=== PATIENT | female | born 2000 | race Caucasian/White ===

== ENCOUNTER 2024-09-16 09:54 | Outpatient (AMB) | payer OTHER, SELFPAY ==
[2024-09-16 10:03] VITALS: BP 128/80; PULSE 82; TEMP 36.9; O2SAT 99; BMI 22.3
--- NOTE | 2024-09-16 10:03 | MHC.PC.OV ---
Vital Signs 09/16/24 10:03 Height 5 ft 2 in Weight 122 lb BMI 22.3 BP 128/80 Blood Pressure Location Lt brachial Position Sitting Pulse 82 Pulse Source Pulse Oximeter Temp 98.4 F Temp Source Oral Pulse Oximetry (%) 99 Oxygen Delivery Method Room Air Intake Visit Reasons: establish care Portable Sawyer Required: No Accompanied by: Self / Same As Patient Allergies No Known Allergies Allergy (Verified 09/16/24 10:16) Medication List - Last Reconciled 09/16/[address] omeprazole 20 mg PO DAILY Tobacco use date assessed: 09/16/24 Dental Screening Dental Screen Date: 09/16/24 Did you have a dental visit in the last 12 months?: No Did you have a dental problem in the last 6 months where you did not have access to dental care?: No Was dental information given to patient?: Patient has dentist HPI establish care HPI Details Previous PCP: Bryan Singleton Last visit: about a year and half Last PE:in a while Specialist: OBGYN: Needs a obyn referral. 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 Past medical history:Elher's Dandros syndrome, fibroid adenoma right breast removed a year ago now, Leiden factor 5, GERD, Medications: Family HX:blood clotting disorders runs in the family, liden factor 5, paternal grand mother and aunt and first cousin had blood clots. mother high blood pressure Problem: The patient is a 24-year-old female presenting with concerns regarding Lona-Danlos Syndrome, gastroesophageal reflux disease, and recurring lower abdominal pain. She has a history of spontaneous left-sided pneumothoraxes, notably requiring a pleurodesis at [facility] in 2019. She reports joint hypermobility, easily sustained injuries with rapid recovery, and increased pain tolerance, consistent with Lona-Danlos Syndrome. She reports persistent gastroesophageal reflux symptoms, including heartburn, daily hiccups, and potential diaphragmatic spasms while on 20mg omeprazole. The patient inquires about increasing the dosage due to inadequate relief. Additionally, she has a familial history of De La Garza's esophagus. She also experiences bilateral lower abdominal pain, historically significant since childhood, suggesting a longstanding gastrointestinal component rather than gynecological. Heart palpitations are also noted, often feeling irregular but possibly exacerbated by dehydration and anxiety. Reports history of Leiden factor 5 disorder and is currently not on any treatment. She has Mirena IUD in place. Has sustained 3 collapsed lungs so far. Patient is concerned that she might has PCOS as well. [facility] Medical History (Updated 09/22/24 @ 05:[address] Campbell) Hypermobile Lona-Danlos syndrome Factor V Leiden Surgical History History of surgical removal of ganglion cyst History of lumpectomy of right breast History of wisdom tooth extraction History of chest tube placement Family History Mother Hypertension Father Hypertension Maternal Grandmother Substance use disorder Maternal Grandfather Substance use disorder Paternal Grandmother Factor V Leiden Paternal Aunt Factor V Leiden Social History Housing: Apartment Alcohol intake: current Alcohol intake frequency: holidays/special occasions only Alcohol type: beer Patient Tobacco Use Status: Never used Tobacco e-Cigarette/Vaping Use: Never Used Second Hand Smoke Exposure: No service: No Current occupational status: employed Current occupational exposures/hazards: No Cognitive needs: No Hearing needs: No Vision needs: No Questionnaire PHQ-9 Over the last 2 weeks, how often have you been bothered by any of the following problems? 1. Little interest or pleasure in doing things: not at all 2. Feeling down, depressed, or hopeless: not at all 3. Trouble falling or staying asleep, or sleeping too much: not at all 4. Feeling tired or having little energy: several days 5. Poor appetite or overeating: several days 6. Feeling bad about yourself - or that you are a failure or have let yourself or your family down: several days 7. Trouble concentrating on things, such as reading the newspaper or watching television: several days 8. Moving or speaking so slowly that other people could have noticed. Or the opposite - being so fidgety or restless that you have been moving around a lot more than usual: not at all 9. Thoughts that you would be better off or of hurting yourself in some way: not at all Total score: 4 Source: Developed by Drs. Michel Vale, Janeth Rose, Fredi Ignacio and colleagues, with an educational fahad from [employer]. Thrive Questionnaire Date Thrive assessed: 09/13/24 I am a: Patient What is your living situation today?: I have a steady place to live Within the past 12 months, did the food you bought not last and you didn't have the money to get more?: Never true Within the past 12 months, did you worry whether your food would run out before you got money to buy more?: Never true Do you have trouble paying for medicines?: No Do you have trouble getting transportation to medical appointments?: No Do you have trouble paying your heating and electricity bill?: No Do you have trouble taking care of your child, family member or friend?: No Do you have trouble with day-to-day activities such as bathing, preparing meals, shopping, managing finances, etc.?: No Are you currently unemployed and looking for a job?: No Are you interested in more education?: No Please select the resources that you would like help with: None Currently or been in a relationship where the following occur: No concerns reported THRIVE Score: 0 AUDIT C Alcohol Use Questionnaire (AUDIT-C) 1. How often do you have a drink containing alcohol?: Monthly or less 2. How many drinks containing alcohol do you have on a typical day when you are drinking?: 1 or 2 3. How often do you have six or more drinks on one occasion?: Never Total Score: 1 POLINA-7 AMB Questionnaire POLINA-7 Date POLINA - 7 assessed: 09/16/24 Feeling nervous, anxious, or on edge: 0 = Not at all Not being able to stop or control worryin = Not at all Worrying too much about different things: 0 = Not at all Trouble relaxin = Several days Being so restless that it is hard to sit still: 0 = Not at all Becoming easily annoyed or irritable: 1 = Several days Feeling afraid as if something awful might happen: 1 = Several days Total POLINA-7 score (0-4 normal; 5-9 mild; 10-14 moderate; 15-21 severe): 3 Source: Developed by David Wilkinset B.W. Milton, Fredi Ignacio and colleagues, with an educational afhad from [employer] POLINA-7 Assessment Billing POLINA-7 Assessment Tool: POLINA-7 Assessment 24020 Review of Systems Const Denies headache(s) Eyes Denies loss of vision ENT Denies vertigo, Denies dizziness, Denies headache(s) and Denies sore throat Card Denies chest pain, Denies leg edema, Denies lightheadedness and Reports other (intermittently feels palpitation with irregular sensation) Resp Denies cough, Denies hemoptysis and Denies wheezing GI Reports abdominal pain (Lower abdomen, reports having an Mirena IUD), Reports belching, Denies melena, Denies constipation, Reports dyspepsia, Reports heartburn, Denies diarrhea, Denies vomiting and Reports other (Daily hiccups) Denies urinary frequency, Denies dysuria and Denies urinary urgency Musc Denies arthralgias, Denies joint swelling, Denies numbness and Denies tingling Neuro Denies Abnormal speech present, Denies behavioral changes, Denies vertigo, Denies dizziness, Denies headache(s), Denies loss of vision, Denies memory loss, Denies numbness and Denies tingling Psych Denies anxiety, Denies behavioral changes, Denies depression, Denies memory loss and Denies panic attacks Carroll/Lymph Denies easy bleeding and Reports easy bruising (Lona-Danlos) Aller/Immun Denies wheezing Physical exam (Primary Care) Vital Signs: Last Vital Signs Temp 98.4 F 09/16/24 10:03 Pulse 82 09/16/24 10:03 BP 128/80 09/16/24 10:03 Pulse Ox 99 09/16/24 10:03 Oxygen Delivery Method Room Air 09/16/24 10:03 BMI result Body Mass Index 22.3 Tobacco/Smoking Status: Tobacco use Status Tobacco use date assessed 09/16/24 09/16/24 10:14 Patient Tobacco Use Status Never used Tobacco 09/16/24 10:14 e-Cigarette/Vaping Use Never Used 09/16/24 10:14 PHQ-9: PHQ-9 Score PHQ-9: Total score 4 09/16/24 10:21 Thrive Assessment: Date of Thrive Assessment Date Thrive assessed 09/13/24 09/16/24 10:14 Currently or been in a relationship where the following occur: No concerns reported Const General: healthy appearing, no acute distress, alert and awake Nutritional Appearance: well nourished Orientation/consciousness: oriented to person, oriented to place and oriented to time HENMT Ears: TM's normal bilaterally General nose exam: Normal nasal mucous membranes and turbinates present Eyes Conjunctivae: conjunctivae normal Sclerae: sclerae normal Pupils: Equal, round and reactive pupils present Neck Neck: Yes no lymphadenopathy and Yes no JVD Thyroid: Thyroid normal Carotids: no bruits Resp Effort & Inspection: normal respiratory effort and not tachypneic Auscultation: no crackles, no rales, no rhonchi and no wheezes Cardio Rate: regular rate Rhythm: regular rhythm Heart sounds: no murmurs and normal S1 and S2 GI Palpation (GI): Soft to palpation, Tenderness to palpation present (GI) (Bilateral lower abdomen pressure) suprapubicly, no hepatomegaly and no splenomegaly Auscultation: normal bowel sounds General: Yes no CVA tenderness Back/Spine/Pelvis Back: no CVA tenderness Skin General skin exam: no rashes or lesions noted and dry skin Neuro General: oriented to person, oriented to place and oriented to time Cranial nerves: Yes Equal, round and reactive pupils present Speech: No Abnormal speech present Gait exam (Neuro): Normal gait present Motor exam (neuro): no tremor noted Extrem Right upper extremity: full ROM Left upper extremity: full ROM Right lower extremity: full ROM; no edema Left lower extremity: full ROM; no edema Psych Mental Status: mental status grossly normal Speech and movement: Normal speech and movement present Affect: normal affect Attitude: cooperative Thought process: Normal thought process present Coding Level of Care Code New Pt Level 4 (51502) Diagnoses Hypermobile Lona-Danlos syndrome Q79.62 Factor V Leiden D68.51 Gastroesophageal reflux disease, unspecified whether esophagitis present K21.9 Esophagitis presence: esophagitis presence not specified Lower abdominal pain R10.30 Heart palpitations R00.2 Additional Codes POLINA-7 Assessment Billing - POLINA-7 Assessment Tool: POLINA-7 Assessment 59829 ([id number]) Time Spent (min) 41 Assessment & Plan Assessment & Plan (1) Hypermobile Lona-Danlos syndrome: Code(s): Q79.62 - Hypermobile Lona-Danlos syndrome Category: Medical Plan: Will refer to rheumatology to further evaluate (2) Factor V Leiden: Code(s): D68.51 - Activated protein C resistance Category: Medical Plan: Will refer to hematology (3) GERD (gastroesophageal reflux disease): Code(s): K21.9 - Gastro-esophageal reflux disease without esophagitis Category: Medical Qualifiers: Esophagitis presence: esophagitis presence not specified Qualified Code(s): K21.9 - Gastro-esophageal reflux disease without esophagitis Plan: Reinforced dietary restriction Currently on omeprazole 20 mg daily Take 2 of the 20 mg omeprazole Will order omeprazole 40 mg if symptoms improve (4) Lower abdominal pain: Code(s): R10.30 - Lower abdominal pain, unspecified Category: Medical Plan: Pressure in lower abdomen of assessment will send for an abdominal ultrasound and advise (5) Heart palpitations: Code(s): R00.2 - Palpitations Category: Medical Plan: Intermittent palpitations Reports that at times she feels irregular heartbeats She is not sure if his anxiety related We will order an altered monitor for a week to further evaluate Orders: Orders Complete Blood Count Auto Diff 09/16/24 D68.9 - Coagulation defect, unspecified, Z00.00 - Encounter for general adult medical examination without abnormal findings Comprehensive [place]. Panel Fast 09/16/24 D68.9 - Coagulation defect, unspecified, Z00.00 - Encounter for general adult medical examination without abnormal findings Prothrombin Time INR 09/16/24 D68.9 - Coagulation defect, unspecified ECG 7 day holter monitor Today R00.2 - Palpitations Lipid Panel 09/16/24 D68.9 - Coagulation defect, unspecified, Z00.00 - Encounter for general adult medical examination without abnormal findings TSH reflex Free T4 09/16/24 D68.9 - Coagulation defect, unspecified, Z00.00 - Encounter for general adult medical examination without abnormal findings UA CC w/rflx Micro + Cult 09/16/24 D68.9 - Coagulation defect, unspecified, Z00.00 - Encounter for general adult medical examination without abnormal findings Vitamin D 25-OH Total 09/16/24 D68.9 - Coagulation defect, unspecified, Z00.00 - Encounter for general adult medical examination without abnormal findings US abdomen limited 09/16/24 R10.9 - Unspecified abdominal pain Referrals Rheumatology Referral Q79.62 - Hypermobile Lona-Danlos syndrome Hematology & Oncology Referral D68.51 - Activated protein C resistance
== END 2024-09-16 10:59 | disposition home or self-care (01) ==
LOC: HO.HMCH 09:54
DX: Q79.62 Hypermobile Ehlers-Danlos syndrome (principal); D68.51 Activated protein C resistance; K21.9 Gastro-esophageal reflux disease without esophagitis; R10.30 Lower abdominal pain, unspecified; R00.2 Palpitations

== ENCOUNTER 2024-09-16 09:54 | Outpatient (REF) | payer OTHER, SELFPAY ==
[2024-09-16 11:18] LABS: MANUAL DIFF FLAG NO
[2024-09-16 12:01] LABS: Basophils Percent Auto 0.5 % (0-2); Eosinophils Absolute Auto 0.1 X10*3/uL (0.0-0.4); Eosinophils Percent Auto 0.9 % (0-4); Hematocrit 41.5 % (37.0-47.0); Hemoglobin 14.2 g/dl (12.0-16.0); Imm Gran Abs Auto 0.03 X10*3/uL (0.00-0.03); Imm Gran Pct Auto 0.4 % (0.0-0.4); Lymphocytes Absolute Auto 2.3 X10*3/uL (1.2-4.9); Lymphocytes Percent Auto 28.4 % (20-40); Mean Corpuscular HGB Conc 34.2 g/dl (31.0-35.0); Mean Corpuscular Hemoglobin 29.8 pg (27.0-33.0); Mean Platelet Volume 11.2 fL (9.4-12.3); Monocytes Absolute Auto 0.6 X10*3/uL (0.1-1.2); Neutrophils Percent Auto 61.8 % (45-73); Platelet Count 267 X10*3/uL (160-400); Red Blood Count 4.77 X10*6/uL (4.20-5.50); Red Cell Distribution Width 13.4 % (11.0-16.0); White Blood Count 8.1 X10*3/uL (4.8-10.8)
[2024-09-16 12:05] LABS: INTERNATIONAL NORM RATIO 1.1 (0.9-1.1); Prothrombin Time 12.7 SEC (10.9-12.4)
[2024-09-16 12:08] LABS: Appearance Urine Clear; Color Urine Yellow; Glucose Urine UA Negative (Negative); Leukocyte Esterase Urine Negative (Negative); Nitrite Urine Negative (Negative); PH 5.5 (5.0-9.0); Specific Gravity - Urine >= 1.030 (1.005-1.025); Urine Blood Negative (Negative); Urine Ketones 15 mg/dL (Negative); Urine Protein Trace mg/dL (Neg-Trace)
[2024-09-16 12:58] LABS: Alanine Aminotransferase 15 U/L (0-31); Alkaline Phosphatase 81 U/L (39-117); Anion Gap 14 (12-20); Aspartate Amino Transferase 21 U/L (5-31); Bilirubin Total 0.8 mg/dL (0.0-1.0); Blood Urea Nitrogen 12 mg/dL (9-16); Calcium 9.7 mg/dL (8.4-10.2); Carbon Dioxide 24 mmol/L (22-29); Chloride 106 mmol/L (96-108); Cholesterol 199 mg/dL (<200); Estimated Glomerular Filt Rate > 60; Glucose Fasting 92 mg/dL (60-99); HDL Cholesterol 63 mg/dL (>40); LDL Cholesterol Calculated 124 mg/dL (<100); Potassium 3.8 mmol/L (3.3-5.1); Sodium 140 mmol/L (135-145); Triglycerides 64 mg/dL (<150)
[2024-09-16 13:15] LABS: TSH reflex Free T4 1.92 uIU/mL (0.32-4.0); Vitamin D 25-OH Total 24.4 ng/mL (>30)
== END 2024-09-16 09:55 | disposition home or self-care (01) ==
LOC: HO.LAB 09:54
DX: Z00.00 Encounter for general adult medical examination without abnormal findings (principal); D68.9 Coagulation defect, unspecified
CPT/HCPCS: 36415; 80053; 80061; 81003; 82306; 84443; 85025; 85610; 96127

== ENCOUNTER 2024-09-30 14:25 | Outpatient (REF) | payer OTHER, SELFPAY ==
--- NOTE | ~2024-09-30 | US_ITS ---
EXAMINATION: US PELVIS CLINICAL INFORMATION: Lower quadrant pelvic pain. COMPARISON: None available. TECHNIQUE: Ultrasound of the pelvis is performed using both transabdominal and transvaginal transducers along with Doppler. Transvaginal imaging is performed due to inadequate visualization transabdominally. FINDINGS: Uterus: The uterus is anteversion flexion position and measures 7 x 3 x 3 cm. The double wall endometrial thickness is normal at identified due to the presence of an intrauterine contraceptive device that extends to the endocervical canal.. The uterus is smooth in contour and has normal myometrial echogenicity. No visible fibroid. Adnexa: Both ovaries are visualized. There is normal color flow to the adnexa. There is no ovarian torsion. There is no pelvic ascites or fluid collection. Right ovary measures 3 x 3 x 2 cm. Volume: 9 cc. Left ovary measures 3 x 2 x 2 cm. Volume: 7 cc. US/US pelvic and transvaginal IMPRESSION: No ovarian torsion. No gross uterine fibroid. Intrauterine contraceptive device extends into the endocervical canal. Electronically signed by: Jose Bernard MD 09/30/2024 03:29 PM EDT
== END 2024-09-30 14:26 | disposition home or self-care (01) ==
LOC: HO.US 14:25
DX: R10.9 Unspecified abdominal pain (principal)
CPT/HCPCS: 76830; 76856

== ENCOUNTER → 2024-09-30 14:30 | Outpatient (BNV) | payer OTHER, SELFPAY | PROVIDERS: Visit Provider Radiology Diagnostic Radiology | DX: R10.2 Pelvic and perineal pain (principal) | CPT/HCPCS: 76830; 76856 ==

== ENCOUNTER → 2024-10-10 07:38 | Outpatient (REF) | payer OTHER, SELFPAY ==
--- NOTE | 2024-10-10 07:44 | HM_ITS ---
* Total monitoring time 7 days. * Underlying rhythm is sinus with an average rate of 80/Min. * Rare supraventricular ectopy. * Rare ventricular ectopy. * No significant pauses or high-grade AV blocks. * Patient markers correlate with sinus rhythm and ventricular ectopy. * Palpitations/skipped beats in patient diary correlates with sinus rhythm and ventricular ectopy. Chest discomfort, left arm tingling/numbness correlates with sinus rhythm. Dizziness correlates with sinus tachycardia. MTDD
== END ==
LOC: HO.CARD 07:38
DX: R00.2 Palpitations (principal)
CPT/HCPCS: 93242

== ENCOUNTER → 2024-10-10 07:44 | Outpatient (BNV) | payer OTHER, SELFPAY | PROVIDERS: Visit Provider Internal Medicine | DX: I47.10 Supraventricular tachycardia, unspecified (principal); I49.3 Ventricular premature depolarization | CPT/HCPCS: 93244 ==

== ENCOUNTER → 2024-11-04 15:19 | Outpatient (BNV) | payer OTHER, SELFPAY | PROVIDERS: Visit Provider Internal Medicine | DX: D68.52 Prothrombin gene mutation (principal) | CPT/HCPCS: 99204 ==

== ENCOUNTER 2024-11-08 16:29 | Outpatient (AMB) | payer OTHER, SELFPAY ==
[2024-11-08 16:33] VITALS: BP 122/80; PULSE 76; TEMP 36.3; O2SAT 99; BMI 22.4
--- NOTE | 2024-11-08 16:33 | A.OFFPC_ITS ---
Vital Signs 11/08/24 16:33 Height 5 ft 2 in Weight 122 lb 4 oz BMI 22.4 BP 122/80 Blood Pressure Location Lt brachial Position Sitting Pulse 76 Pulse Source Pulse Oximeter Temp 97.3 F Temp Source Temporal Artery Scan Pulse Oximetry (%) 99 Oxygen Delivery Method Room Air Intake Visit Reasons: Annual Exam Bilingual Receptionist Required: No Accompanied by: Self / Same As Patient Allergies No Known Allergies Allergy (Verified 11/10/24 13:13) Medication List - Last Reconciled 11/10/[address] omeprazole 20 mg PO DAILY Tobacco use date assessed: 11/08/24 Dental Screening Dental Screen Date: 11/08/24 Did you have a dental visit in the last 12 months?: Yes Did you have a dental problem in the last 6 months where you did not have access to dental care?: No Was dental information given to patient?: Patient has dentist HPI Annual Exam HPI Details Dentist: up to date Eye: Reports having this done months ago and every was fine, she has a slight Snellen: Right: Left: Corrected vision: no soes not need a prescrition STI screening: EGD: she needs an endoscopy- she is having pelvic pain, ultrasound was fine. Pap Smer: october 28, 2024 PHQ-9: Flu: up to date COVID: x4 Tdap: due will be give today Diet: regular diet, discussed cholesterol, reports that she eats a lot eggs Exercise: She is physically active, at least 3 times a week The patient is a 24-year-old female presenting with pelvic pain and a request for a GI referral for potential endoscopy. The pelvic pain is suspected to be gastrointestinal in origin, as previous ultrasound results were normal. The patient reports that the pain is not constant but occurs intermittently. The patient has a history of vitamin D deficiency, which is common in the [facility] [place] due to limited sun exposure. She has been advised to take vitamin D supplements. The patient has hypercholesterolemia, with cholesterol levels slightly elevated. She has been advised to modify her diet, particularly reducing intake of fried foods, red meats, and shellfish. The patient reports ectopy, which was noted in cardiac evaluations. She was reassured that this is a common finding and not a cause for concern. The patient has a slight astigmatism in her left eye, but no corrective lenses are required. The patient reports jaw pain following recent dental work, specifically a crown placement. She plans to contact her dentist for further evaluation. The patient experiences chronic neck and back pain, which she attributes to poor posture. She is attempting to improve her posture to alleviate symptoms. The patient reports frequent headaches, which she believes are tension-related due to neck stiffness. She has increased her fluid intake and uses Excedrin Migraine for relief. The patient has a cyst in her finger, with a history of previous surgical intervention. She reports inflammation and swelling in the affected finger, prior. The patient has plantar fasciitis and has been advised to apply Biofreeze cream for relief. She also reports a potential bunion formation on her foot. [facility] Medical History (Updated 11/10/24 @ 14:[address] Campbell) Neck pain Chronic tension headache Hypermobile Lona-Danlos syndrome Factor V Leiden Surgical History History of surgical removal of ganglion cyst History of lumpectomy of right breast History of wisdom tooth extraction History of chest tube placement Family History Mother Hypertension Father Hypertension Maternal Grandmother Substance use disorder Maternal Grandfather Substance use disorder Paternal Grandmother Factor V Leiden Paternal Aunt Factor V Leiden DVT (deep venous thrombosis) Family/Other Factor V Leiden Paternal Aunt No problems noted. Social History Household Members: Significant Other Housing: Apartment Alcohol intake: current Alcohol intake frequency: holidays/special occasions only Alcohol type: beer Patient Tobacco Use Status: Never used Tobacco e-Cigarette/Vaping Use: Never Used Second Hand Smoke Exposure: No Substance Use Type: Marijuana service: No Current occupational status: employed Current occupational exposures/hazards: No Cognitive needs: No Hearing needs: No Vision needs: No Questionnaire PHQ-9 Over the last 2 weeks, how often have you been bothered by any of the following problems? 1. Little interest or pleasure in doing things: not at all 2. Feeling down, depressed, or hopeless: not at all 3. Trouble falling or staying asleep, or sleeping too much: not at all 4. Feeling tired or having little energy: several days 5. Poor appetite or overeating: several days 6. Feeling bad about yourself - or that you are a failure or have let yourself or your family down: several days 7. Trouble concentrating on things, such as reading the newspaper or watching television: several days 8. Moving or speaking so slowly that other people could have noticed. Or the opposite - being so fidgety or restless that you have been moving around a lot more than usual: not at all 9. Thoughts that you would be better off or of hurting yourself in some way: not at all Total score: 4 Depression Screening Interpretation: Negative Depression Screening Done: Yes Source: Developed by Drs. Michel Vale, Janeth Rose, Fredi Ignacio and colleagues, with an educational fahad from [employer]. Thrive Questionnaire Date Thrive assessed: 11/08/24 I am a: Patient What is your living situation today?: I have a steady place to live Within the past 12 months, did the food you bought not last and you didn't have the money to get more?: Never true Within the past 12 months, did you worry whether your food would run out before you got money to buy more?: Never true Do you have trouble paying for medicines?: No Do you have trouble getting transportation to medical appointments?: No Do you have trouble paying your heating and electricity bill?: No Do you have trouble taking care of your child, family member or friend?: No Do you have trouble with day-to-day activities such as bathing, preparing meals, shopping, managing finances, etc.?: No Are you currently unemployed and looking for a job?: No Are you interested in more education?: No Please select the resources that you would like help with: None Currently or been in a relationship where the following occur: No concerns reported THRIVE Score: 0 AUDIT C Alcohol Use Questionnaire (AUDIT-C) 1. How often do you have a drink containing alcohol?: Monthly or less 2. How many drinks containing alcohol do you have on a typical day when you are drinking?: 1 or 2 3. How often do you have six or more drinks on one occasion?: Never Total Score: 1 POLINA-7 AMB Questionnaire POLINA-7 Date POLINA - 7 assessed: 11/08/24 Feeling nervous, anxious, or on edge: 0 = Not at all Not being able to stop or control worryin = Not at all Worrying too much about different things: 0 = Not at all Trouble relaxin = Several days Being so restless that it is hard to sit still: 0 = Not at all Becoming easily annoyed or irritable: 1 = Several days Feeling afraid as if something awful might happen: 1 = Several days Total POLINA-7 score (0-4 normal; 5-9 mild; 10-14 moderate; 15-21 severe): 3 Source: Developed by Drs. Michel Vale, Janeth Rose, Fredi Ignacio and colleagues, with an educational fahad from [employer]. Review of Systems Const Reports headache(s) (On and off attributed to neck tension) Eyes Denies loss of vision ENT Denies vertigo, Denies dizziness, Reports headache(s) (On and off attributed to neck tension), Reports neck pain and Reports sore throat (Occasional) Card Denies chest pain, Denies leg edema, Denies lightheadedness and Reports other ( palpitation) Resp Denies cough, Denies hemoptysis, Denies wheezing and Reports other (Recurrent PE) GI Reports abdominal pain (Across lower abdomen/feels like it is in her pelvis), Denies melena, Denies constipation, Reports heartburn, Denies diarrhea, Denies vomiting and Reports other (Hiccups) Denies urinary frequency, Denies dysuria and Denies urinary urgency Musc Denies arthralgias, Denies joint swelling, Reports neck pain, Denies numbness and Denies tingling Neuro Denies Abnormal speech present, Denies behavioral changes, Denies vertigo, Denies dizziness, Reports headache(s) (On and off attributed to neck tension), Denies loss of vision, Denies memory loss, Denies numbness and Denies tingling Psych Denies anxiety, Denies behavioral changes, Denies depression, Denies memory loss and Denies panic attacks Carroll/Lymph Denies easy bleeding and Denies easy bruising Aller/Immun Denies wheezing Physical exam (Primary Care) Vital Signs: Last Vital Signs Temp 97.3 F 11/08/24 16:33 Pulse 76 11/08/24 16:33 BP 122/80 11/08/24 16:33 Pulse Ox 99 11/08/24 16:33 Oxygen Delivery Method Room Air 11/08/24 16:33 BMI result Body Mass Index 22.4 Tobacco/Smoking Status: Tobacco use Status Tobacco use date assessed 11/08/24 11/08/24 16:40 Patient Tobacco Use Status Never used Tobacco 11/08/24 16:40 e-Cigarette/Vaping Use Never Used 11/08/24 16:40 PHQ-9: PHQ-9 Score PHQ-9: Total score 4 11/10/24 13:23 Depression Screening Interpretation: Negative Thrive Assessment: Date of Thrive Assessment Date Thrive assessed 11/08/24 11/08/24 16:40 Currently or been in a relationship where the following occur: No concerns reported Const General: healthy appearing, no acute distress, alert and awake Nutritional Appearance: well nourished Orientation/consciousness: oriented to person, oriented to place and oriented to time HENMT Ears: TM's normal bilaterally General nose exam: Normal nasal mucous membranes and turbinates present Eyes Conjunctivae: conjunctivae normal Sclerae: sclerae normal Pupils: Equal, round and reactive pupils present Neck Neck: Yes no lymphadenopathy and Yes no JVD Thyroid: Thyroid normal Carotids: no bruits Resp Effort & Inspection: normal respiratory effort and not tachypneic Auscultation: no crackles, no rales, no rhonchi and no wheezes Cardio Rate: regular rate Rhythm: regular rhythm Heart sounds: no murmurs and normal S1 and S2 GI Palpation (GI): Soft to palpation, nontender, no hepatomegaly and no splenomegaly Auscultation: normal bowel sounds General: Yes no CVA tenderness Back/Spine/Pelvis Back: no CVA tenderness Skin General skin exam: no rashes or lesions noted and dry skin Neuro General: oriented to person, oriented to place and oriented to time Cranial nerves: Yes Equal, round and reactive pupils present Speech: No Abnormal speech present Gait exam (Neuro): Normal gait present Motor exam (neuro): no tremor noted Deep tendon reflexes (DTR's): Right triceps reflex intensity grade: 2+, Left triceps reflex intensity grade: 2+, Rt Biceps (C5, C6): 2+, Left biceps reflex intensity grade: 2+, Right brachioradialis reflex intensity grade: 2+, Left brachioradialis reflex intensity grade: 2+, Right patellar reflex intensity grade: 2+ and Left patellar reflex intensity grade: 2+ Extrem Right upper extremity: full ROM Left upper extremity: full ROM Right lower extremity: full ROM; no edema Left lower extremity: full ROM; no edema Psych Mental Status: mental status grossly normal Speech and movement: Normal speech and movement present Affect: normal affect Attitude: cooperative Thought process: Normal thought process present Results Reviewed Results Reviewed: Laboratory Tests 09/16/24 09/16/24 11:15 11:16 WBC 8.1 RBC 4.77 Hgb 14.2 Hct 41.5 MCV 87.0 MCH 29.8 MCHC 34.2 RDW 13.4 Plt Count 267 MPV 11.2 PT 12.7 H INR 1.1 Sodium 140 Potassium 3.8 Chloride 106 Carbon Dioxide 24 Anion Gap 14 BUN 12 Creatinine 0.79 Estimated GFR > 60 Fasting Glucose 92 Calcium 9.7 Total Bilirubin 0.8 AST 21 ALT 15 Alkaline Phosphatase 81 Total Protein 8.0 Albumin 5.0 Triglycerides 64 Cholesterol 199 LDL Cholesterol, Calc 124 H HDL Cholesterol 63 25-OH Vitamin D Total 24.4 L TSH 1.92 Urine Color Yellow Urine Appearance Clear Urine pH 5.5 Ur Specific Roosevelt >= 1.030 H Urine Protein Trace Urine Glucose (UA) Negative Urine Ketones 15 Urine Blood Negative Urine Nitrite Negative Ur Leukocyte Esterase Negative Coding Level of Care Code Est Pt Prev Care [id number]([id number]) Diagnoses Annual physical exam Z00.00 Hypermobile Lona-Danlos syndrome Q79.62 Lower abdominal pain R10.30 Gastroesophageal reflux disease, unspecified whether esophagitis present K21.9 Esophagitis presence: esophagitis presence not specified Factor V Leiden D68.51 Heart palpitations R00.2 Plantar fasciitis M72.2 Jaw pain R68.84 Vitamin D deficiency E55.9 Hyperlipidemia, unspecified hyperlipidemia type E78.5 Hyperlipidemia type: unspecified Encounter for screening for malignant neoplasm of skin Z12.83 Ganglion, left hand M67.442 Chronic tension-type headache, not intractable G44.229 Intractability: not intractable Neck pain M54.2 Time Spent (min) 43 Assessment & Plan Assessment & Plan (1) Annual physical exam: Code(s): Z00.00 - Encounter for general adult medical examination without abnormal findings Category: Medical Plan: Preventative guidelines and recent labs reviewed with the patient.Pap Smer: october 28, 2024 (2) Hypermobile Lona-Danlos syndrome: Code(s): 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 Patient reports concerns of having this diagnosis and has been trying get it evaluated. Initially, a referral was placed to rheumatology and was told that rheumatology does not diagnose this condition. Another referral was placed to [facility] genetics, awaiting response. (3) Lower abdominal pain: Code(s): R10.30 - Lower abdominal pain, unspecified Category: Medical Plan: She also experiences bilateral lower abdominal pain, historically significant since childhood, suggesting a longstanding gastrointestinal component rather than gynecologica Patient had a pelvic ultrasound on 09/30/2024 that showed no abnormal findings. Initially, an abdominal ultrasound was ordered along with a pelvic ultrasound. However, the radiology personnel thought that given her symptoms the pelvic ultrasound was more appropriate. We will refer the patient to GI (4) GERD (gastroesophageal reflux disease): Code(s): K21.9 - Gastro-esophageal reflux disease without esophagitis Category: Medical Qualifiers: Esophagitis presence: esophagitis presence not specified Qualified Code(s): K21.9 - Gastro-esophageal reflux disease without esophagitis Plan: She reports persistent gastroesophageal reflux symptoms, including heartburn, daily hiccups, and potential diaphragmatic spasms while on 20mg omeprazole. The patient inquires about increasing the dosage due to inadequate relief. Additionally, she has a familial history of De La Garza's esophagus. Continue omeprazole 20 mg daily. Reinforced dietary restrictions. We will refer the patient to GI for possibly EGD (5) Factor V Leiden: Code(s): D68.51 - Activated protein C resistance Category: Medical Plan: Patient reports recurrent spontaneous pneumothorax in the left lung started at age 16. She had a lung surgery pleurodesis at [facility] in [place]. She has a Mirena IUD in place. Patient was seen by Hematology on 11/04/2024 and was advised to abstain from smoking and avoid using oral contraceptive. (6) Heart palpitations: Code(s): R00.2 - Palpitations Category: Medical Plan: Patient was evaluated via a 7 day Holter monitor. This showed palpitation/skipped beats in the patient diary correlating with sinus rhythm and ventricular ectopy. Dizziness correlating with sinus tachycardia and chest discomfort and left arm tightness/numbness recurrence correlating with sinus rhythm (7) Plantar fasciitis: Code(s): M72.2 - Plantar fascial fibromatosis Category: Medical Plan: Encouraged comfortable shoes and calf massages. You may apply Biofreeze to calves (8) Jaw pain: Code(s): R68.84 - Jaw pain Category: Medical Plan: Recent root canal. Reports discomfort to right jaw. No signs of infection and mouth. The patient we will be following up with her dentist. (9) Vitamin D deficiency: Code(s): E55.9 - Vitamin D deficiency, unspecified Category: Medical Plan: Vitamin-D level is 24.4. Recommended vitamin D3 1000 IU OTC daily (10) HLD (hyperlipidemia): Code(s): E78.5 - Hyperlipidemia, unspecified Category: Medical Qualifiers: Hyperlipidemia type: unspecified Qualified Code(s): E78.5 - Hyperlip idemia, unspecified Plan: Triglycerides 64, total cholesterol 199, LDL 124, HDL 63 Discussed lifestyle modifications including dietary changes and physical activity (11) Encounter for screening for malignant neoplasm of skin: Code(s): Z12.83 - Encounter for screening for malignant neoplasm of skin Category: Medical Plan: Dermatology referral placed (12) Ganglion, left hand: Code(s): M67.442 - Ganglion, left hand Category: Medical Plan: Patient reports recurrent cysts between her fingers that required surgical intervention in the past. Reports that this area gets inflamed and swollen. Reports that she could feel a small raised area coming back, which she has been monitoring. We will continue to monitor (13) Chronic tension headache: Code(s): G44.229 - Chronic tension-type headache, not intractable Category: Medical Qualifiers: Intractability: not intractable Qualified Code(s): G44.229 - Chronic tension-type headache, not intractable Plan: History of tension headache attributed to at posture and neck pain that she has been working on better in her posture. Increase fluid hydration and continue Excedrin migraine OTC has needed (14) Neck pain: Code(s): M54.2 - Cervicalgia Category: Medical Plan: Continue working on posture. You may benefit from occasional massages. Can alternate warm and cold compress as needed with 20 minutes on each interval Orders: Orders Complete Blood Count Auto Diff 1 Year D68.51 - Activated protein C resistance, D68.9 - Coagulation defect, unspecified, K21.9 - Gastro-esophageal reflux disease without esophagitis, R00.2 - Palpitations, R10.30 - Lower abdominal pain, unspecified, R10.9 - Unspecified abdominal pain, Z00.00 - Encounter for general adult medical examination without abnormal findings Comprehensive [place]kelman. Panel Fast 1 Year D68.51 - Activated protein C resistance, D68.9 - Coagulation defect, unspecified, K21.9 - Gastro-esophageal reflux disease without esophagitis, R00.2 - Palpitations, R10.30 - Lower abdominal pain, unspecified, R10.9 - Unspecified abdominal pain, Z00.00 - Encounter for general adult medical examination without abnormal findings Lipid Panel 1 Year D68.51 - Activated protein C resistance, D68.9 - Coagulation defect, unspecified, K21.9 - Gastro-esophageal reflux disease without esophagitis, R00.2 - Palpitations, R10.30 - Lower abdominal pain, unspecified, R10.9 - Unspecified abdominal pain, Z00.00 - Encounter for general adult medical examination without abnormal findings UA CC w/rflx Micro + Cult 1 Year D68.51 - Activated protein C resistance, D68.9 - Coagulation defect, unspecified, K21.9 - Gastro-esophageal reflux disease without esophagitis, R00.2 - Palpitations, R10.30 - Lower abdominal pain, unspecified, R10.9 - Unspecified abdominal pain, Z00.00 - Encounter for general adult medical examination without abnormal findings TSH reflex Free T4 1 Year D68.51 - Activated protein C resistance, D68.9 - Coagulation defect, unspecified, K21.9 - Gastro-esophageal reflux disease without esophagitis, R00.2 - Palpitations, R10.30 - Lower abdominal pain, unspecified, R10.9 - Unspecified abdominal pain, Z00.00 - Encounter for general adult medical examination without abnormal findings Vitamin D 25-OH Total 1 Year D68.51 - Activated protein C resistance, D68.9 - Coagulation defect, unspecified, K21.9 - Gastro-esophageal reflux disease without esophagitis, R00.2 - Palpitations, R10.30 - Lower abdominal pain, unspecified, R10.9 - Unspecified abdominal pain, Z00.00 - Encounter for general adult medical examination without abnormal findings Referrals Gastroenterology Referral K21.9 - Gastro-esophageal reflux disease without esophagitis, R10.30 - Lower abdominal pain, unspecified Dermatology Referral Z12.83 - Encounter for screening for malignant neoplasm of skin
== END 2024-11-08 17:20 | disposition home or self-care (01) ==
LOC: HO.HMCH 16:29
DX: Z00.00 Encounter for general adult medical examination without abnormal findings (principal); Q79.62 Hypermobile Ehlers-Danlos syndrome; R10.30 Lower abdominal pain, unspecified; K21.9 Gastro-esophageal reflux disease without esophagitis; D68.51 Activated protein C resistance; R00.2 Palpitations; M72.2 Plantar fascial fibromatosis; R68.84 Jaw pain; E55.9 Vitamin D deficiency, unspecified; E78.5 Hyperlipidemia, unspecified; Z12.83 Encounter for screening for malignant neoplasm of skin; M67.442 Ganglion, left hand; G44.229 Chronic tension-type headache, not intractable; M54.2 Cervicalgia

== ENCOUNTER 2024-12-20 14:31 | Outpatient (REF) | payer OTHER, SELFPAY ==
--- NOTE | ~2024-12-20 | US_ITS ---
EXAMINATION: US THYROID HISTORY: E04.9 - Nontoxic goiter, unspecified TECHNIQUE: Real-time grayscale ultrasound imaging was performed and images were reviewed. COMPARISON: There are no prior studies available for comparison. FINDINGS: SIZE: The right thyroid lobe measures 5.1 x 1.1 x 1.3 cm. The left thyroid lobe measures 3.6 x 0.9 x 1.3 cm. The isthmus measures 2 mm. FLOW: Flow to the gland is normal. ECHOGENICITY: The echotexture of the gland is homogeneous. NODULES: No definite thyroid nodules are identified. However, on the right, there is a 9 x 6 x 3 mm hypoechoic nodule posterior to the midportion of the gland. On the left, there is a 4.3 x 3 mm hypoechoic nodule posterior to the lower pole. US/US thyroid IMPRESSION: No definite thyroid nodules are identified. There are hypoechoic nodules posterior to both thyroid lobes which could represent parathyroid adenomas or possibly lymph nodes. Laboratory correlation to assess for parathyroid disease is recommended. If further imaging is desired, a nuclear medicine parathyroid scan is suggested. ACR TI-RADS Guidelines TR1 (0 points): Benign. No follow-up or biopsy required TR2 (2 points): Not Suspicious. No biopsy or follow up indicated TR3 (3 points): Mildly Suspicious. FNA if >= 2.5 cm, Follow if >= 1.5 cm TR4 (4-6 points): Moderately Suspicious. FNA if >= 1.5 cm, Follow if >= 1.0 cm TR5 (>=7 points): Highly Suspicious. FNA if >= 1.0 cm, Follow if >= 0.5 cm Electronically signed by: Michel Crandall MD 12/20/2024 02:59 PM EDT
--- OUTSIDE RECORDS SUMMARY | 2024-12-20 14:50 | XMS_ITS | Clinical Summary ---
Author Organization [facility] [address] [facility] [address] Care Team Providers Care Straightening Machine Operator Name Role Phone Bryan Tyler Primary Care Provider [phone] Allergies Active Allergy Reactions Criticality Noted Date Comments Adhesive Rash 12/25/2017 Pretty much all adhesives cause some irritation and itchy redness, but if it's only on for a little while it's fine. Medications intrauterine device (PARAGARD) 380 square mm IUD by Intrauterine route Continuous (Device). Expected removal date 2025 Active acetaminophen (TYLENOL) 325 mg Tablet Take 3 tablets by mouth every 6 hours as needed for Pain (for mild to moderate pain). 0 8 Active eletriptan (RELPAX) 20 mg Tablet 1 Active hydrOXYzine (Atarax) 25 mg tablet Take 25 mg by mouth every 6 hours as needed for Anxiety. 3 Active levonorgestreL (Liletta) 20.4 mcg/24 hrs (8 yrs) 52 mg IUD 1 each by Intrauterine route Continuous (Device). Expected removal date Per pt report Active omeprazole (PriLOSEC OTC) [address] tablet Take 20 mg by mouth as needed. Active oxyCODONE (Roxicodone) 5 mg tablet Take 1 tablet by mouth every 4 hours as needed for Pain. 4 tablet 3 Active Additional Information Patient not taking.Reported on 04/14/2023 Active Problems Problem Noted Date Diagnosed Date LUX (dyspnea on exertion) 11/06/2020 Overview (11/06/2020): Episodic severe dyspnea Had to sit down walking through the store Negative CTA at [facility] In [facility] ED had transient saturation of 82% with good Pleth according to her Assessment & Plan (11/06/2020 10:34 AM EDT): Episodic severe dyspnea Had to sit down walking through the store Negative CTA at [facility] In [facility] ED had transient saturation of 82% with good Pleth according to her Given her sports history she does not have serious underlying congenital cardiopulmonary disease. But she has developed new tacky arrhythmias and potentially a transient low saturation. This would raise concern for shunting, likely intracardiac. She documented a heart rate of 142 at rest so I am concerned about SVT. No delta wave seen on ECG. Work-up as outlined. Palpitations 11/06/2020 Overview (01/15/2021): She documented heart rate to 142 while at rest Event monitor neg 9 Assessment & Plan (11/06/2020 10:34 AM EDT): She documented heart rate to 142 while at rest Event monitor ordered Recurrent spontaneous pneumothorax 12/29/2017 Overview (11/06/2020): 3 episodes beginning at age 17 Status post pleurodesis on the left [facility] Had a recurrent pneumothorax on the left following this that was controlled by pleurodesis No cysts on chest CT concerning for CARTAGENA Assessment & Plan (11/06/2020 10:33 AM EDT): 3 episodes beginning at age 17 Status post pleurodesis on the left [facility] Had a recurrent pneumothorax on the left following this that was controlled by pleurodesis No cysts on chest CT concerning for CARTAGENA Resolved Problems Problem Noted Date Diagnosed Date Resolved Date Pneumothorax on left 05/10/2019 021 Family History Medical History Relation Comments Bleeding Disorder Cousin Factor V Leide n Deep Vein Thrombosis Cousin Postoperative Nausea and Vomiting Mother Bleeding Disorder Paternal Aunt Factor V Leide n Bleeding Disorder Paternal Grandmother Factor V Leiden Anesthesia Reaction Neg Hx Malignant Hyperthermia Neg Hx Pseudocholinesterase Deficiency Neg Hx Pulmonary Embolism Neg Hx Relation Status Comments Cousin Mother Paternal Aunt Paternal Grandmother Social History Tobacco Use Types Packs/Day Years Used Date Smoking Tobacco: Never Smokeless Tobacco: Never Tobacco Cessation:Counseling Given: Not Answered Alcohol Use Standard Drinks/Week Comments Not Currently 0 (1 standard drink = 0.6 oz pur e alcohol) 1x a month, if that Comments No Sex and Gender Information Value Date Recorded Sex Assigned at Not on file Legal Sex Female 6:53 AM EST Gender Identity Not on file Sexual Orientation Not on file Last Filed Vital Signs Vital Sign Reading Time Taken Comments Blood Pressure 102/70 04/14/2023 2:27 PM EST Pulse 76 04/14/2023 2:27 PM EST Temperature 36.9 C (98.5 F) 04/14/2023 2:27 PM EST Respiratory Rate 20 04/03/2023 3:00 PM EST Oxygen Saturation 99% 04/14/2023 2:27 PM EST Inhaled Oxygen Concentration - - Weight 53.3 kg (117 lb 8 oz) 04/03/2023 12:21 PM EST Height 157.5 cm (5' 2 ) 04/03/2023 12:21 PM EST Body Mass Index 21.49 04/03/2023 12:21 PM EST Plan of Treatment Health Maintenance Due Date Last Done Comments HPV vaccine (1 - 3-dose series) 2013 HIV screen 01/21/2016 Hepatitis C Screening 01/21/2016 Hepatitis B vaccine (0-59 yrs) and Risk (1) 2017 Tetanus/Diphtheria/Pertussis Vaccines (1 - Tdap) 01/20 PAP Smear 01/30/2022 01/30/2019 Covid-19 Vaccine (1 - 2023- season) 2023 Influenza (Flu) vaccine (1 o f 1 - Influenza standard series) 12/16/2024 Procedures Procedure Name Priority Date/Time Associated Diagnosis Comments RAIL BONDER CYTOLOGY FINAL REPORT Routine 01/30/2019 12:30 PM EDT from Last 3 Months or Most Recently Relevant to Health Maintenance Results * Second Vp Hr Assessment Cytology Final Report (01/30/2019 12:30 PM EDT) Second Vp Hr Assessment Cytology Final Report [id number] Location: [facility] The signing pathologist has (i) examined the relevant preparation(s) for the specimen(s) and (ii) rendered or confirmed the diagnosis(es). . Second Vp Hr Assessment Final DIAGNOSIS Normal Negative for intraepithelial lesion or malignancy (NILM). For consensus guidelines for the management of cervical cancer screening test results, please see: http://www.asccp. org . Electronically signed by: Delia LUNA(ASCP)Wendy Verified: 02/07/2019 Activity Aid Performed at: -[facility] Dept. of Pathology, [place], [place] HPV RESULTS Not applicable (HPV testing either not indicated or not requested by clinician). STATEMENT OF ADEQUACY Specimen submitted is satisfactory. Endocervical component present. CLINICAL INFORMATION HPV Option: Reflex HPV CT/NG Option: (not provided) Preparation: Liquid Based Pap Specimen Source: Cervical/LBP LMP: (not provided) Hysterectomy?: No ?: No ?: No I.U.D.?: Yes Pelvic Radiation: No Hist Abnl Pap/Biopsy?: No Prior RAIL BONDER Therapy?: No Hist of HPV Vaccine?: Yes Clinical Data, Significant Therapy and Clinical Impression : _ Referring Identifier: [id number] This Pap Test has been evaluated with the assistance of the [employer] Pap Test Imaging System. Note: The Pap test is a screening test for cervical cancer with an inherent false-negative rate dependent upon several variables. For further information please contact the [facility] Laboratory. Reference: Brie SALAZAR. Condenser Cleaner of Pap Smear Results. In: Meghan BS, Elieser GIRARD, ed. The Pap Smear. [place]: Tab, 2002: 71-77. Comment Section Specimen collected at [facility] 01/30/2019 12:3 0 PM EDT us Tram Whitaker MD PATHOLOGY/CYTOLOGY ORDERABLES Fi nal Result [facility] [place] [address] from Last 3 Months or Most Recently Relevant to Health Maintenance Insurance [employer] Advance Directives * Full Code (Latest Code Status on File) Date Activated Date Inactivated Comments 05/10/2019 9:57 PM 05/11/2019 7:30 PM Question Answer Comments Does patient have capacity to make decision: Yes * Full Code Date Activated Date Inactivated Comments 12/29/2017 7:54 AM 12/31/2017 10:34 PM Question Answer Comments Does patient have capacity to make decision: Yes Care Teams Straightening Machine Operator Relationship Specialty Start Date End Date Bryan Tyler PA [address] [place] [address] PCP - General Family Medicine 09/09/22
--- OUTSIDE RECORDS SUMMARY | 2024-12-20 14:50 | XMS_ITS | Encounter Summary ---
Author Organization [facility] Address [address] [place] [address] Care Team Providers Care Elementary Assistant Principal Name Role Phone Unavailable Primary Care Provider Unavailabl e Encounter Details Date Type Department Care Team (Late st Contact Info) Description 11/23/2019 Lab Requisition [facility] Pathology & Laboratory Medicine - [facility] [address] [place] [address] Outr Resulting Lab, Provider Social History Tobacco Use Types Packs/Day Years Used Date Smoking Tobacco: Never Assessed Comments Unknown Sex and Gender Information Value Date Recorded Sex Assigned at Not on file Legal Sex Female 6:11 EDT Gender Identity Not on file Sexual Orientation Not on file documented as of this encounter Plan of Treatment Not on file documented as of this encounter Procedures Procedure Name Priority Date/Time Associated Diagnosis Comments ZZCOVID-19 TEST [facility] PCR Today 11/22/2019 12:00 EDT COVID-19 TESTING Routine 11/22/2019 12:0 0 EDT documented in this encounter Results * COVID-19 TEST [facility] PCR (11/22/2019 12:00 EDT) Swab ENTIRE NASOPHARYNX / Unknown 11/22/2019 12:00 EDT 11/23/2019 8:58 EDT us Provider Outr Resulting Lab MICROBIOLOGY - GENER AL ORDERABLES Final Result [facility] [address] [place] [address] * COVID-19 TESTING (11/22/2019 12:00 EDT) COVID-19 rt-PCR Result Negative Negative 11/23/2019 11:53 EDT [facility] Comment: This test has not been FDA cleared or approved. This test has been authorized by FDA under an EUA for use by authorized laboratories. This test has been authorized only for detection of nucleic acid from 2019-nCoV, not for any other viruses or pathogens. This test is only authorized for the duration of the declaration that circumstances exist justifying the authorization of emergency use of in vitro diagnostic tests for detection and/or diagnosis of 2019-nCoV under section 564(b)(1) of Act, 21 U.S.C 360bbb-3(b) (1), unless the authorization is terminated or revoked sooner. Negative results do not preclude 2019-nCoV infection and should not be used as the sole basis for treatment or other patient management decisions. Negative results must be combined with clinical observations, patient history, and epidemiological information. Performed on the [employer] Fusion instrument Performing Lab [place] [facility] 11/23/2019 11:53 EDT [facility] Swab 11/22/2019 12:0 0 EDT 11/23/2019 8:58 EDT us Provider Outr Resulting Lab MICROBIOLOGY - GENER AL ORDERABLES Final Result [facility] [address] [place] [address] documented in this encounter Visit Diagnoses Not on filedocumented in this encounter
--- OUTSIDE RECORDS SUMMARY | 2024-12-20 14:50 | XMS_ITS | Encounter Summary ---
Author Organization [facility] Address [address] [place] [address] Care Team Providers Care Casting Room Operator Name Role Phone Unavailable Primary Care Provider Unavailabl e Encounter Details Date Type Department Care Team (Late st Contact Info) Description 01/19/2022 Lab Requisition [facility] Pathology & Laboratory Medicine - [facility] [address] [place] [address] Becky Cotton MD [address] [place] [address] Encounter for screening for malignant neoplasm of cervix Social History Tobacco Use Types Packs/Day Years Used Date Smoking Tobacco: Never Assessed Interpersonal Safety Answer Date Record ed Physically Hurt Never 03/10/2020 Verbally Threaten Not on file 03/10/2020 Comments Unknown Sex and Gender Information Value Date Recorded Sex Assigned at Not on file Legal Sex Female 6:11 EDT Gender Identity Not on file Sexual Orientation Not on file documented as of this encounter Plan of Treatment Not on file documented as of this encounter Procedures Procedure Name Priority Date/Time Associated Diagnosis Comments PAP TEST Today 01/18/2022 15:56 EDT documented in this encounter Results * PAP TEST (01/18/2022 15:56 EDT) Specimens A. Cervix and/or Endocervix , ThinPrep Imaging System with Manual Evaluation 01/25/2022 9:[address] [facility] Specimen Adequacy Satisfactory for Evaluation - transformation zone component present 01/25/2022 9:[address] [facility] General Categorization Negative for intraepithelial lesion or malignancy 01/25/2022 9:[address] [facility] Descriptive Diagnosis Shift in alec present suggestive of bacterial vaginosis. 01/25/2022 9:[address] [facility] Attestation . 01/25/2022 9:[address] [facility] at 0915 EDT Clinical History See below 01/26/20 9:[address] [facility] Performing Lab [facility] 01/25/2022 9:[address] [facility] Scanned Images 01/25/2022 9:[address] [facility] Papanicolaou smear specimen (specimen) CERVIX UTERI STRUCTURE / Unknown 01/18/2022 15:56 EDT 2022 14:21 EDT us Becky Cotton MD PATHOLOGY ORDERABLES Final Res ult [facility] [address] [place] [address] documented in this encounter Visit Diagnoses Diagnosis Encounter for screening for malignant neoplasm of cervix Screening for malignant neoplasm of the cervix documented in this encounter
--- OUTSIDE RECORDS SUMMARY | 2024-12-20 14:50 | XMS_ITS | Clinical Summary ---
Author Organization [facility] Address [address] [place] [address] Care Team Providers Care Microbiology Quality Control Technician Name Role Phone Unavailable Primary Care Provider Unavailabl e Social History Tobacco Use Types Packs/Day Years Used Date Smoking Tobacco: Never Assessed Interpersonal Safety Answer Date Record ed Physically Hurt Never 03/10/2020 Verbally Threaten Not on file 03/10/2020 Comments Unknown Sex and Gender Information Value Date Recorded Sex Assigned at Not on file Legal Sex Female 6:11 EDT Gender Identity Not on file Sexual Orientation Not on file Plan of Treatment Health Maintenance Due Date Last Done Comments Hepatitis C Screen 1998 Hepatitis B Vaccine (1 of 3 - 19+ 3-dose series) 01/20 COVID-19 Vaccine (2023- season) 2023
--- OUTSIDE RECORDS SUMMARY | 2024-12-20 14:50 | XMS_ITS | Encounter Summary ---
Author Organization [facility] Address [address] [place] [id number] Care Team Providers Care Tile Installer Name Role Phone Unavailable Primary Care Provider Unavailabl e Encounter Details Date Type Department Care Team (Late st Contact Info) Description 01/19/2022 Lab Requisition [facility] Pathology & Laboratory Medicine - [facility] [address] [place] [address] Outr Resulting Lab, Provider Social History Tobacco [...] Procedure Name Priority Date/Time Associated Diagnosis Comments CHLAMYDIA/N. GONORRHOEAE AMPLIFIED NUCLEIC ACID, THINPREP Routine 01/18/2022 15:56 EDT documented in this encounter Results * CHLAMYDIA/N. GONORRHOEAE AMPLIFIED RNA, THINPREP (01/18/2022 15:56 EDT) Neisseria gonorrhoeae Result Negative Negative 2022 15:10 EDT [facility] Chlamydia trachomatis Result Negative Negative 2022 15:10 EDT [facility] Papanicolaou smear specimen (specimen) CERVIX UTERI STRUCTURE / Unknown 01/18/2022 15:56 EDT 2022 8:33 EDT us Provider Outr Resulting Lab MICROBIOLOGY - GENER AL ORDERABLES Final Result Performing Organization Address [facility]/State/ZIP Co de Phone Number [facility] [address] [place] [address] documented in this encounter Visit Diagnoses Not on filedocumented in this encounter
== END 2024-12-20 14:32 | disposition home or self-care (01) ==
LOC: HO.HMGCX 14:31
DX: E04.9 Nontoxic goiter, unspecified (principal)
CPT/HCPCS: 76536

== ENCOUNTER → 2024-12-20 14:33 | Outpatient (BNV) | payer OTHER, SELFPAY | PROVIDERS: Visit Provider Radiology Diagnostic Radiology | DX: R22.1 Localized swelling, mass and lump, neck (principal) | CPT/HCPCS: 76536 ==

== ENCOUNTER 2024-12-28 10:40 | Outpatient (REF) | payer OTHER, SELFPAY ==
[2024-12-28 11:20] LABS: Albumin Level 5.0 g/dL (3.5-5.0); Calcium 9.7 mg/dL (8.4-10.2); Estimated Glomerular Filt Rate > 60
[2024-12-28 11:22] LABS: PTH Intact Intraoperative 57.8 pg/mL (8.7-77.1)
[2024-12-31 16:12] LABS: Calcium, Ionized 5.3 mg/dL (4.7-5.5)
== END 2024-12-28 10:41 | disposition home or self-care (01) ==
LOC: HO.LAB 10:40
DX: D35.1 Benign neoplasm of parathyroid gland (principal)
CPT/HCPCS: 36415; 82040; 82306; 82310; 82330; 82565; 83970; 84100

== ENCOUNTER 2025-01-02 09:56 | Outpatient (AMB) | payer OTHER, SELFPAY ==
--- NOTE | 2025-01-02 09:58 | A.OFFPC_ITS ---
Vital Signs 01/02/25 09:59 Height 5 ft 2 in Weight 118 lb 2 oz BMI 21.6 BP 110/60 Blood Pressure Location Lt brachial Position Sitting Respiration 18 Pulse 67 Pulse Source Pulse Oximeter Temp 97.1 F Temp Source Temporal Artery Scan Pulse Oximetry (%) 96 Oxygen Delivery Method Room Air Intake Visit Reasons: New pain to thyroid area Vocational Education Teacher Required: No Accompanied by: Self / Same As Patient Allergies No Known Allergies Allergy (Verified 01/03/25 18:01) Medication List - Last Reconciled 01/03/[address] omeprazole 20 mg PO DAILY Tobacco use date assessed: 01/02/25 Dental Screening Dental Screen Date: 01/02/25 Did you have a dental visit in the last 12 months?: Yes Did you have a dental problem in the last 6 months where you did not have access to dental care?: No Was dental information given to patient?: Patient has dentist HPI New pain to thyroid area HPI Details The patient is a 24-year-old female presenting with right-sided neck pain and swelling. The pain began yesterday and is localized to the right side of the neck, making it difficult to swallow due to the soreness but only on the right side. The right side of her thyroid area appears larger, and an ultrasound was previously performed to evaluate this. It was noted the US that the patient has a right hypoechoic nodule posterior to the midportion of thyroid gland and hypoechoic nodule posterior the lower pole noted on thyroid ultrasound on 12/20/2024. labs done to evaluate parathyroid, which came back normal. The patient also reports intermittent symptoms consistent with allergic rhinitis, including intermittent sinus congestion and postnasal drip. These symptoms have been present on and off, with no significant change in severity. [facility] Medical History Neck pain Chronic tension headache Hypermobile Lona-Danlos syndrome Factor V Leiden Surgical History History of surgical removal of ganglion cyst History of lumpectomy of right breast History of wisdom tooth extraction History of chest tube placement Family History Mother Hypertension Father Hypertension Maternal Grandmother Substance use disorder Maternal Grandfather Substance use disorder Paternal Grandmother Factor V Leiden Paternal Aunt Factor V Leiden DVT (deep venous thrombosis) Family/Other Factor V Leiden Paternal Aunt No problems noted. Social History Household Members: Significant Other Housing: Apartment Alcohol intake: current Alcohol intake frequency: holidays/special occasions only Alcohol type: beer Patient Tobacco Use Status: Never used Tobacco e-Cigarette/Vaping Use: Never Used Second Hand Smoke Exposure: No Substance Use Type: Marijuana service: No Current occupational status: employed Current occupational exposures/hazards: No Cognitive needs: No Hearing needs: No Vision needs: No Questionnaire PHQ-9 Over the last 2 weeks, how often have you been bothered by any of the following problems? 1. Little interest or pleasure in doing things: not at all 2. Feeling down, depressed, or hopeless: not at all 3. Trouble falling or staying asleep, or sleeping too much: not at all 4. Feeling tired or having little energy: several days 5. Poor appetite or overeating: several days 6. Feeling bad about yourself - or that you are a failure or have let yourself or your family down: several days 7. Trouble concentrating on things, such as reading the newspaper or watching television: several days 8. Moving or speaking so slowly that other people could have noticed. Or the opposite - being so fidgety or restless that you have been moving around a lot more than usual: not at all 9. Thoughts that you would be better off or of hurting yourself in some way: not at all Total score: 4 Depression Screening Interpretation: Negative Depression Screening Done: Yes Source: Developed by Drs. Michel Vale, Janeth Rose, Fredi Ignacio and colleagues, with an educational fahad from [employer]. Thrive Questionnaire Date Thrive assessed: 09/13/24 I am a: Patient What is your living situation today?: I have a steady place to live Within the past 12 months, did the food you bought not last and you didn't have the money to get more?: Never true Within the past 12 months, did you worry whether your food would run out before you got money to buy more?: Never true Do you have trouble paying for medicines?: No Do you have trouble getting transportation to medical appointments?: No Do you have trouble paying your heating and electricity bill?: No Do you have trouble taking care of your child, family member or friend?: No Do you have trouble with day-to-day activities such as bathing, preparing meals, shopping, managing finances, etc.?: No Are you currently unemployed and looking for a job?: No Are you interested in more education?: No Please select the resources that you would like help with: None Currently or been in a relationship where the following occur: No concerns reported THRIVE Score: 0 AUDIT C Alcohol Use Questionnaire (AUDIT-C) 1. How often do you have a drink containing alcohol?: Monthly or less 2. How many drinks containing alcohol do you have on a typical day when you are drinking?: 1 or 2 3. How often do you have six or more drinks on one occasion?: Never Total Score: 1 POLINA-7 AMB Questionnaire POLINA-7 Date POLINA - 7 assessed: 11/08/24 Feeling nervous, anxious, or on edge: 0 = Not at all Not being able to stop or control worryin = Not at all Worrying too much about different things: 0 = Not at all Trouble relaxin = Several days Being so restless that it is hard to sit still: 0 = Not at all Becoming easily annoyed or irritable: 1 = Several days Feeling afraid as if something awful might happen: 1 = Several days Total POLINA-7 score (0-4 normal; 5-9 mild; 10-14 moderate; 15-21 severe): 3 Source: Developed by Drs. Michel Vale, Janeth Rose, Fredi Ignacio and colleagues, with an educational afhad from [employer]. Review of Systems Const Denies body aches, Denies chills, Denies fever(s), Denies headache(s) and Denies poor appetite Eyes Reports no additional complaints ENT Reports dysphagia, Denies dizziness, Denies headache(s), Reports nasal congestion (intermittent), Reports neck pain (right side of neck only) and Denies odynophagia Card Denies chest pain, Denies syncope, Denies edema, Denies irregular heart rhythm, Denies lightheadedness and Denies dyspnea Resp Denies cough and Denies dyspnea GI Denies abdominal pain, Denies constipation, Reports dysphagia, Denies diarrhea, Denies nausea, Denies odynophagia and Denies vomiting Reports no additional complaints Musc Reports no additional complaints, Denies abnormal gait and Reports neck pain (right side of neck only) Skin/Breast Reports system reviewed and no additional complaints, except as documented Neuro Denies abnormal gait, Denies dizziness, Denies syncope and Denies headache(s) Psych Reports no additional complaints Physical exam (Primary Care) Vital Signs: Last Vital Signs Temp 97.1 F 01/02/25 09:59 Pulse 67 01/02/25 09:59 Resp 18 01/02/25 09:59 BP 110/60 01/02/25 09:59 Pulse Ox 96 01/02/25 09:59 Oxygen Delivery Method Room Air 01/02/25 09:59 BMI result Body Mass Index 21.6 Tobacco/Smoking Status: Tobacco use Status Tobacco use date assessed 01/02/25 01/02/25 10:05 Patient Tobacco Use Status Never used Tobacco 01/02/25 10:05 e-Cigarette/Vaping Use Never Used 01/02/25 10:05 PHQ-9: PHQ-9 Score PHQ-9: Total score 4 01/02/25 10:19 Depression Screening Interpretation: Negative Thrive Assessment: Date of Thrive Assessment Date Thrive assessed 09/13/24 01/02/25 10:05 Currently or been in a relationship where the following occur: No concerns reported Const General: cooperative, healthy appearing, comfortable and no acute distress Orientation/consciousness: patient oriented x3 HENMT Head: Yes normocephalic Ears: hearing grossly normal bilaterally General nose exam: Abnormal mucous membranes and turbinates present erythematous bilateral Throat: Yes posterior oropharynx normal Eyes General: appearance normal, both eyes and all related structures Conjunctivae: conjunctivae normal Neck Neck: Yes full ROM and Yes no lymphadenopathy Thyroid: lateral enlargement (slightly larger than left) on the right Resp Effort & Inspection: normal respiratory effort Auscultation: clear to auscultation bilaterally, no crackles, no rales, no rhonchi and no wheezes Cardio Rate: regular rate Rhythm: regular rhythm Heart sounds: S1 normal heart sound present and S2 normal heart sound present Skin General skin exam: no rashes or lesions noted Neuro General: patient oriented x3 Gait exam (Neuro): Normal gait present Extrem General: Yes normal to inspection, Yes full ROM and No edema Psych Affect: normal affect Attitude: cooperative Insight: Good insight present (Psych) Judgement: Good judgement present (Psych) Results Reviewed Results Reviewed: Laboratory Tests 09/16/24 12/28/24 11:16 10:48 Creatinine 0.80 Estimated GFR > 60 Calcium 9.7 Ionized Calcium 5.3 Phosphorus 3.9 Albumin 5.0 25-OH Vitamin D Total 26.7 L TSH 1.92 PTH Intact Intraop 57.8 Coding Level of Care Code Est Pt Level 3 (65409) Diagnoses Enlarged thyroid gland E04.9 Neck pain M54.2 Dysphagia, unspecified type R13.10 Dysphagia type: unspecified Allergic rhinitis, unspecified seasonality, unspecified trigger J30.9 Allergic rhinitis seasonality: unspecified Allergic rhinitis trigger: unspecified Time Spent (min) 33 Assessment & Plan Assessment & Plan (1) Enlarged thyroid gland: Code(s): E04.9 - Nontoxic goiter, unspecified Category: Medical Plan: Endocrinology will further evaluate the possible parathyroid nodule that was seen on ultrasound to determine the need for additional diagnostic testing or intervention. The patient should continue monitoring for symptom changes and report any new symptoms. (2) Neck pain: Code(s): M54.2 - Cervicalgia Category: Medical Plan: Referral to endocrinology for further evaluation of right-sided neck pain and swelling is planned, considering the thyroid nodule and persistent symptoms. The patient should monitor for symptom changes and follow up with the sales representative publications as scheduled. (3) Dysphagia: Code(s): R13.10 - Dysphagia, unspecified Category: Medical Qualifiers: Dysphagia type: unspecified Qualified Code(s): R13.10 - Dysphagia, unspecified Plan: Discomfort on the right side of the neck when swallowing. Denies choking on foods, however, the sensation in the right side of the neck is bothersome. The patient is referred to endocrine, consider doing a barium swallow if there are no findings by ENDO. (4) Allergic rhinitis: Code(s): J30.9 - Allergic rhinitis, unspecified Category: Medical Qualifiers: Allergic rhinitis seasonality: unspecified Allergic rhinitis trigger: unspecified Qualified Code(s): J30.9 - Allergic rhinitis, unspecified Plan: Management of allergic rhinitis symptoms with [id number] antihistamines is advised, with monitoring for changes in symptom severity. Further evaluation may be considered if symptoms persist or worsen. Orders: Referrals Endocrinology Referral E04.9 - Nontoxic goiter, unspecified, M54.2 - Cervicalgia
[2025-01-02 09:59] VITALS: BP 110/60; PULSE 67; RESP 18; TEMP 36.2; O2SAT 96; BMI 21.6
--- OUTSIDE RECORDS SUMMARY | 2025-01-02 11:42 | XMS_ITS | Clinical Summary ---
Author Organization [facility] Address [address] [place] [address] Care Team Providers Care Chief Nursing Executive Name Role Phone Unavailable Primary Care Provider [...]
--- OUTSIDE RECORDS SUMMARY | 2025-01-02 11:42 | XMS_ITS | Clinical Summary ---
Author Organization [facility] Address [address] [facility] [place] [address] Care Team Providers Care Pool Lifeguard Name Role Phone Bryan Tyler Primary Care Provider [phone] Allergies Active Allergy Reactions Criticality Noted Date [...] walking through the store Negative CTA at [facility] In [facility] ED had transient saturation of 82% with good Pleth according to her Assessment & Plan (11/06/2020 10:34 AM EDT): Episodic severe dyspnea Had to sit down walking through the store Negative CTA at [facility] In [facility] ED had transient saturation of 82% with [...] 17 Status post pleurodesis on the left [facility] Had a recurrent pneumothorax on the left following this that was controlled by pleurodesis No cysts on chest CT concerning for [facility]ARTAGE[facility] Assessment & Plan (11/06/2020 10:33 AM EDT): 3 episodes beginning at age 17 Status post pleurodesis on the left [facility] Had a recurrent pneumothorax on the left [...] Smear 01/30/2022 01/30/2019 Covid-19 Vaccine (1 - season) 2024 Influenza (Flu) vaccine (1 o f 1 - Influenza standard series) 12/16/2024 Procedures Procedure Name Priority Date/Time Associated Diagnosis Comments SUPERVISOR MOLD YARD CYTOLOGY FINAL REPORT Routine 01/30/2019 12:30 PM EDT from Last 3 Months or Most Recently Relevant to Health Maintenance Results * Sports Attorney Cytology Final Report (01/30/2019 12:30 PM EDT) Sports Attorney Cytology Final Report [id number] Location: [facility] The signing pathologist has (i) examined the relevant preparation(s) for the specimen(s) and (ii) rendered or confirmed the diagnosis(es). . Sports Attorney Final DIAGNOSIS Normal Negative for intraepithelial lesion or malignancy (NILM). For consensus guidelines for the management of cervical cancer screening test results, please see: http://www.asccp. org . Electronically signed by: Delia LUNA(ASCP)Wendy Verified: 02/07/2019 Lens Finisher Performed at: -[facility] Dept. of Pathology, [place], [place] HPV RESULTS Not applicable (HPV testing either not indicated or not requested by clinician). STATEMENT OF ADEQUACY Specimen submitted is satisfactory. Endocervical component present. CLINICAL INFORMATION HPV Option: Reflex HPV CT/NG Option: (not provided) Preparation: Liquid Based Pap Specimen Source: Cervical/LBP LMP: (not provided) Hysterectomy?: No ?: No ?: No I.U.D.?: Yes Pelvic Radiation: No Hist Abnl Pap/Biopsy?: No Prior SUPERVISOR MOLD YARD Therapy?: No Hist of HPV Vaccine?: Yes Clinical Data, Significant Therapy and Clinical Impression : _ Referring Identifier: [id number] This Pap Test has been evaluated with the assistance of the [employer] Pap Test Imaging System. Note: The Pap test is a screening test for cervical cancer with an inherent false-negative rate dependent upon several variables. For further information please contact the [facility] Laboratory. Reference: Brie SALAZAR. Forensic Science Technician of Pap Smear Results. In: Meghan BS, Elieser GIRARD, ed. The Pap Smear. [place]: Tab, 2002: 71-77. Comment Section Specimen collected at [facility] 01/30/2019 12:3 0 PM EDT us Tram Whitaker MD PATHOLOGY/CYTOLOGY ORDERABLES Fi nal Result [facility] [place] [address] from Last 3 Months or Most Recently Relevant to Health Maintenance Insurance [employer] Advance Directives * Full Code (Latest Code Status on File) Date Activated Date Inactivated Comments 05/10/2019 9:57 PM 05/11/2019 7:30 PM Question Answer Comments Does patient have capacity to make decision: Yes * Full Code Date Activated Date Inactivated Comments 12/29/2017 7:54 AM 12/31/2017 10:34 PM Question Answer Comments Does patient have capacity to make decision: Yes Care Teams Pool Lifeguard Relationship Specialty Start Date End Date Bryan Tyler PA [address] [place] [address] PCP - General Family Medicine 09/09/22
--- OUTSIDE RECORDS SUMMARY | 2025-01-02 11:42 | XMS_ITS | Encounter Summary ---
Author Organization [facility] Address [address] [place] [address] Care Team Providers Care Lighting Engineer Name Role Phone Unavailable Primary Care Provider Unavailabl e Encounter Details Date Type Department Care Team (Late st Contact Info) Description 11/23/2019 Lab Requisition [facility] Pathology & Laboratory Medicine - [facility] [address] [place] [address] Outr Resulting Lab, Provider Social History Tobacco [...] Associated Diagnosis Comments ZZCOVID-19 TEST [facility] PCR Today 11/22/2019 12:00 EDT COVID-19 TESTING Routine 11/22/2019 12:0 0 EDT documented in this encounter Results * COVID-19 TEST [facility] PCR (11/22/2019 12:00 EDT) Swab ENTIRE NASOPHARYNX / Unknown 11/22/2019 12:00 EDT 11/23/2019 8:58 EDT us Provider Outr Resulting Lab MICROBIOLOGY - GENER AL ORDERABLES Final Result [facility] [address] [place] [address] * COVID-19 TESTING (11/22/2019 12:00 EDT) COVID-19 rt-PCR Result Negative Negative 11/23/2019 11:53 EDT [facility] Comment: This test has [...] history, and epidemiological information. Performed on the Axium Nanofibersher Fusion instrument Performing Lab [place] [facility] 11/23/2019 11:53 EDT [facility] Swab 11/22/2019 12:0 0 EDT 11/23/2019 8:58 EDT us Provider Outr Resulting Lab MICROBIOLOGY - GENER AL ORDERABLES Final Result [facility] [address] [place] [address] documented in this encounter Visit Diagnoses Not on filedocumented in this encounter
--- OUTSIDE RECORDS SUMMARY | 2025-01-02 11:42 | XMS_ITS | Encounter Summary ---
Author Organization [facility] Address [address] [place] [address] Care Team Providers Care Felter Tennis Balls Name Role Phone Unavailable Primary Care Provider Unavailabl e Encounter Details Date Type Department Care Team (Late st Contact Info) Description 01/19/2022 Lab Requisition [facility] Pathology & Laboratory Medicine - [facility] [address] [place] [address] Becky Cotton MD [address] [place] [address] Encounter for screening for malignant [...] System with Manual Evaluation 01/25/2022 9:15 EDT [facility] Specimen Adequacy Satisfactory for Evaluation - transformation zone component present 01/25/2022 9:15 EDT [facility] General Categorization Negative for intraepithelial lesion or malignancy 01/25/2022 9:15 EDT [facility] Descriptive Diagnosis Shift in alec present suggestive of bacterial vaginosis. 01/25/2022 9:15 EDT [facility] Attestation . 01/25/2022 9:15 EDT [facility] at 0915 EDT Clinical History See below 01/26/20 9:15 EDT [facility] Performing Lab [facility] 01/25/2022 9:15 EDT [facility] Scanned Images 01/25/2022 9:15 EDT [facility] Papanicolaou smear specimen (specimen) CERVIX UTERI STRUCTURE / Unknown 01/18/2022 15:56 EDT 2022 14:21 EDT us Becky Cotton MD PATHOLOGY ORDERABLES Final Res ult [facility] [address] [place] [address] documented in this encounter Visit Diagnoses Diagnosis Encounter for screening for malignant neoplasm of cervix Screening for malignant neoplasm of the cervix documented in this encounter
--- OUTSIDE RECORDS SUMMARY | 2025-01-02 11:42 | XMS_ITS | Encounter Summary ---
Author Organization [facility] Address [address] [place] [id number] Care Team Providers Care Field Marketing Associate Name Role Phone Unavailable Primary Care Provider Unavailabl e Encounter Details Date Type Department Care Team (Late st Contact Info) Description 01/19/2022 Lab Requisition [facility] Pathology & Laboratory Medicine - [facility] [address] [place] [address] Outr Resulting Lab, Provider Social History Tobacco [...] gonorrhoeae Result Negative Negative 2022 15:10 EDT [facility] Chlamydia trachomatis Result Negative Negative 2022 15:10 EDT [facility] Papanicolaou smear specimen (specimen) CERVIX UTERI STRUCTURE / Unknown 01/18/2022 15:56 EDT 2022 8:33 EDT us Provider Outr Resulting Lab MICROBIOLOGY - GENER AL ORDERABLES Final Result Performing Organization Address [facility]/State/ZIP Co de Phone Number [facility] [address] [place] [address] documented in this encounter Visit Diagnoses Not on filedocumented in this encounter
== END 2025-01-02 12:33 | disposition home or self-care (01) ==
LOC: HO.HMCH 09:57
DX: E04.9 Nontoxic goiter, unspecified (principal); M54.2 Cervicalgia; R13.10 Dysphagia, unspecified; J30.9 Allergic rhinitis, unspecified

== ENCOUNTER 2025-02-26 15:58 | Outpatient (AMB) | payer OTHER, SELFPAY ==
--- NOTE | 2025-02-26 16:03 | MHC.OFFVIS ---
Vital Signs 02/26/25 16:11 Height 5 ft 2 in Weight 118 lb BMI 21.6 BP 114/76 Blood Pressure Location Rt brachial Position Sitting Pulse 84 Pulse Source Pulse Oximeter Pulse Oximetry (%) 100 Oxygen Delivery Method Room Air Intake Visit Reasons: Gastroesophageal reflux disease (GERD) Intake Note: Patient new consult for GERD. Patient cc; C.O. GERD + ABD pain - typically epigastric but is also generalized. Pt also reports that they have significant FMHx of De La Garza's - paternal. Has not been properly established with any GI specialist. Chief Hospital Administrator Required: No Accompanied by: Self / Same As Patient Allergies adhesive tape Allergy (Mild, Verified 02/26/25 16:08) Rash Medication List - Last Reconciled 02/26/25 by [place] CNP famotidine 40 mg PO DAILY PRN omeprazole 20 mg PO DAILY HPI HPI Gastroesophageal reflux disease (GERD): Details: Patient is a 25-year-old female with PMH of factor 5 Leiden, Lona-Danlos syndrome. Referred by PCP for further evaluation of abdominal pain The patient reports longstanding epigastric pain, present since infancy, historically associated with severe reflux necessitating treatment as a child. Symptoms have worsened with age, most notably over the past several years, consisting of persistent burning heartburn and chest pressure, exacerbated at night and when lying down. She describes frequent daily hiccups and reports episodes where liquid or food regurgitates into her esophagus. She denies dysphagia. Previously managed on omeprazole 40 mg daily for over two years, she switched to famotidine 40 mg daily about six months ago with limited relief; symptoms worsen with poor consistency on famotidine, and she notes better control with omeprazole. Intermittent use of Excedrin (approximately once weekly) is reported. Her bowel habits are regular, with one to three movements daily, although unsure about complete evacuation. She reports no blood in stool and maintains a stable appetite and weight (typically 118?125 lbs). Comorbid history includes remote spontaneous pneumothorax (three episodes, last >6 years ago, required thoracic surgery). She is aware of previous low vitamin D, not currently replaced, and elevated cholesterol noted in recent labs. No history of GI or other cancers; pelvic ultrasound was normal. No known family history of GI cancers. Patient denies: fever/chills, n/v, appetite changes, dysphasia, unintentional wt loss, ab pain or melena/hematochezia. Social hx: -ETOH use 1x/month. half drink -smokes marijuana 2x/week, denies other recreational drug use -non-smoker - family hx as below -denies personal hx of CA -tolerated anesthesia in the past without difficulty. [facility] Medical History Neck pain Chronic tension headache Hypermobile Lona-Danlos syndrome Factor V Leiden Surgical History History of surgical removal of ganglion cyst History of lumpectomy of right breast History of wisdom tooth extraction History of chest tube placement Family History Mother Hypertension Father Hypertension Maternal Grandmother Substance use disorder Maternal Grandfather Substance use disorder Paternal Grandmother Factor V Leiden De La Garza's esophagus Paternal Aunt Factor V Leiden DVT (deep venous thrombosis) De La Garza's esophagus Family/Other Factor V Leiden Social History Household Members: Significant Other Housing: Apartment Alcohol intake: current Alcohol intake frequency: holidays/special occasions only Alcohol type: beer Patient Tobacco Use Status: Never used Tobacco e-Cigarette/Vaping Use: Never Used Second Hand Smoke Exposure: No Substance Use Type: Marijuana service: No Current occupational status: employed Current occupational exposures/hazards: No Cognitive needs: No Hearing needs: No Vision needs: No Review of Systems Const Reports as per HPI ENT Reports as per HPI Card Reports as per HPI Resp Reports as per HPI GI Reports as per HPI Reports as per HPI Physical Exam Const General: healthy appearing, no acute distress and well developed Nutritional Appearance: average body habitus Orientation/consciousness: patient oriented x3 HEENT Head: Yes normal to inspection, Yes normocephalic and Yes atraumatic Face and sinus: Yes normal facial exam Eyes General: appearance normal, both eyes and all related structures Neck Neck: Yes normal visual inspection Lymphatic: no lymphadenopathy noted Resp Effort & Inspection: normal respiratory effort, able to speak in complete sentences, no tracheal deviation and symmetric chest movement Cardio Jugular venous distension: no JVD GI Inspection: Yes normal to inspection, No distended and Yes other (Mild bloating noted, otherwise normal.) Palpation (GI): Soft to palpation, not firm, nontender and No hepatosplenomegaly present Auscultation: normal bowel sounds Neuro General: patient oriented x3 Gait exam (Neuro): Normal gait present Psych Appearance: grossly normal Mental Status: mental status grossly normal Speech and movement: Normal speech and movement present Affect: normal affect Attitude: cooperative Thought process: Normal thought process present Thought content: Normal thought content present Insight: Good insight present (Psych) Judgement: Good judgement present (Psych) Assessment & Plan Assessment & Plan (1) GERD (gastroesophageal reflux disease): Code(s): K21.9 - Gastro-esophageal reflux disease without esophagitis Category: Medical Qualifiers: Esophagitis presence: esophagitis presence not specified Qualified Code(s): K21.9 - Gastro-esophageal reflux disease without esophagitis Plan: Chronic reflux symptoms with incomplete response to H2RA, history of better control on PPI, and risk factors for peptic ulcer disease (NSAID use). Additional Testing: - H. pylori breath or stool test (breath test preferred for convenience) - Upper GI series to evaluate esophageal transit, gastric anatomy, and rule out structural lesions Medication Management: - Initiate pantoprazole 40 mg daily (in place of omeprazole), to be started after H. pylori testing (to avoid false-negative result); take on empty stomach >=30 min before eating - Continue famotidine as needed for breakthrough symptoms; withhold 24 hr before H. pylori test - Avoid regular NSAID/aspirin use; minimize Excedrin - Recommend daily vitamin D supplementation; discuss dosing with PCP Lifestyle Recommendations: - Strict avoidance of alcohol, especially given triggering effect - Avoid acidic, spicy, fried foods - No late-night eating; remain upright >= hr postprandial - Eat small, frequent meals; avoid overeating - Emphasize hydration with water - Assess fiber intake, aim for adequate soluble sources; monitor for persistent constipation symptoms Follow-Up: - Reassess after completion of H. pylori testing and upper GI series; follow-up timing based on test scheduling - If H. pylori positive, initiate 2-wk quadruple therapy (2 antibiotics, PPI, bismuth); communication via portal - Monitor for any worsening or alarm features; portal communication available for interval concerns Plan Follow-up after UGI or sooner as needed Time: I spent a total of 30 minutes on the date of encounter which includes: Preparing to see the patient (reviewed previous documentation, test results and medical history) Performing a medically appropriate exam and/or evaluation Ordering medications, tests, and procedures Documenting clinical information in the health record Orders: Orders FL upper GI small bowel Today K21.9 - Gastro-esophageal reflux disease without esophagitis H Pylori Breath Test Today K21.9 - Gastro-esophageal reflux disease without esophagitis Medications: New pantoprazole Take 1 tablet daily. Best taken on an empty stomach, 30 minutes before food 40 mg PO QAM 90 tabs 1RF Coding Level of Care Code New Pt New Pt Level 3 (23585) Patient Type New Diagnoses Gastroesophageal reflux disease, unspecified whether esophagitis present K21.9 Esophagitis presence: esophagitis presence not specified
[2025-02-26 16:11] VITALS: BP 114/76; PULSE 84; O2SAT 100; BMI 21.6
--- OUTSIDE RECORDS SUMMARY | 2025-02-26 18:53 | XMS_ITS | Encounter Summary ---
Author Organization [facility] Address [address] [place] [address] Care Team Providers Care Powerhouse Mechanic Name Role Phone Unavailable Primary Care Provider Unavailabl e Encounter Details Date Type Department Care Team (Late st Contact Info) Description 11/23/2019 Lab Requisition [facility] Pathology & Laboratory Medicine - [facility] [address] [place] [address] Outr Resulting Lab, Provider Social History Tobacco [...] Priority Date/Time Associated Diagnosis Comments ZZCOVID-19 TEST [facility] LAB PCR Today 11/22/2019 12:00 EDT COVID-19 TESTING Routine 11/22/2019 12:0 0 EDT documented in this encounter Results * COVID-19 TEST [facility] LAB PCR (11/22/2019 12:00 EDT) Swab ENTIRE NASOPHARYNX / Unknown 11/22/2019 12:00 EDT 11/23/2019 8:58 EDT us Provider Outr Resulting Lab MICROBIOLOGY - GENER AL ORDERABLES Final Result [facility] [address] [place] [address] * COVID-19 TESTING (11/22/2019 12:00 EDT) COVID-19 rt-PCR Result Negative Negative 11/23/2019 11:53 EDT [facility] Comment: This test has [...] history, and epidemiological information. Performed on the femeninas Fusion instrument Performing Lab [place] [facility] Lab 11/23/2019 11:53 EDT [facility] Swab 11/22/2019 12:0 0 EDT 11/23/2019 8:58 EDT us Provider Outr Resulting Lab MICROBIOLOGY - GENER AL ORDERABLES Final Result [facility] [address] [place] [address] documented in this encounter Visit Diagnoses Not on filedocumented in this encounter
--- OUTSIDE RECORDS SUMMARY | 2025-02-26 18:53 | XMS_ITS | Clinical Summary ---
Author Organization [facility] Address [address] [place] [address] Care Team Providers Care Leather Novelty Parts Cutter Name Role Phone Unavailable Primary Care Provider [...]
--- OUTSIDE RECORDS SUMMARY | 2025-02-26 18:53 | XMS_ITS | Clinical Summary ---
Author Organization [facility] [address] [facility] [place] [address] Care Team Providers Care Pile Driver Name Role Phone Bryan Tyler Primary Care Provider [phone]- [phone] Allergies Active Allergy Reactions Criticality Noted Date [...] walking through the store Negative CTA at [facility] In [facility] ED had transient saturation of 82% with good Pleth according to her Assessment & Plan (11/06/2020 10:34 AM EDT): Episodic severe dyspnea Had to sit down walking through the store Negative CTA at [facility] In [facility] ED had transient saturation of 82% with [...] 17 Status post pleurodesis on the left [facility] Had a recurrent pneumothorax on the left following this that was controlled by pleurodesis No cysts on chest CT concerning for CARTAGENA Assessment & Plan (11/06/2020 10:33 AM EDT): 3 episodes beginning at age 17 Status post pleurodesis on the left [facility] Had a recurrent pneumothorax on the left [...] Health Maintenance Due Date Last Done Comments HIV screen 01/21/2016 Hepatitis C Screening 01/21/2016 Hepatitis B vaccine (0-59 yrs) and Risk (1) 2017 Tetanus/Diphtheria/Pertussis Vaccines (1 - Tdap) 01/20 PAP Smear 01/30/2022 01/30/2019 Covid-19 Vaccine (1 - 2024- season) 2024 Influenza (Flu) vaccine (1 o f 1 - Influenza standard series) 12/16/2024 Procedures Procedure Name Priority Date/Time Associated Diagnosis Comments LINUX SYSTEM ADMINISTRATOR CYTOLOGY FINAL REPORT Routine 01/30/2019 12:30 PM EDT from Last 3 Months or Most Recently Relevant to Health Maintenance Results * Tuckpointer Cytology Final Report (01/30/2019 12:30 PM EDT) Tuckpointer Cytology Final Report [id number] Location: [facility] The signing pathologist has (i) examined the relevant preparation(s) for the specimen(s) and (ii) rendered or confirmed the diagnosis(es). . Tuckpointer Final DIAGNOSIS Normal Negative for intraepithelial lesion or malignancy (NILM). For consensus guidelines for the management of cervical cancer screening test results, please see: http://www.asccp. org . Electronically signed by: Delia LUNA(ASCP)Wendy Verified: 02/07/2019 Tree Farmer Performed at: -[facility] Dept. of Pathology, [place], [place] HPV RESULTS Not applicable (HPV testing either not indicated or not requested by clinician). STATEMENT OF ADEQUACY Specimen submitted is satisfactory. Endocervical component present. CLINICAL INFORMATION HPV Option: Reflex HPV CT/NG Option: (not provided) Preparation: Liquid Based Pap Specimen Source: Cervical/LBP LMP: (not provided) Hysterectomy?: No ?: No ?: No I.U.D.?: Yes Pelvic Radiation: No Hist Abnl Pap/Biopsy?: No Prior LINUX SYSTEM ADMINISTRATOR Therapy?: No Hist of HPV Vaccine?: Yes Clinical Data, Significant Therapy and Clinical Impression : _ Referring Identifier: [id number] This Pap Test has been evaluated with the assistance of the [employer] Pap Test Imaging System. Note: The Pap test is a screening test for cervical cancer with an inherent false-negative rate dependent upon several variables. For further information please contact the [facility] Laboratory. Reference: Brie SALAZAR. Historic Sites Registrar of Pap Smear Results. In: Meghan BS, Elieser GIRARD, ed. The Pap Smear. [place]: Tab, 2002: 71-77. Comment Section Specimen collected at [facility] 01/30/2019 12:3 0 PM EDT us Tram Whitaker MD PATHOLOGY/CYTOLOGY ORDERABLES Fi nal Result [facility] [place] [address] from Last 3 Months or Most Recently Relevant to Health Maintenance Insurance [employer] Advance Directives * Full Code (Latest Code Status on File) Date Activated Date Inactivated Comments 05/10/2019 9:57 PM 05/11/2019 7:30 PM Question Answer Comments Does patient have capacity to make decision: Yes * Full Code Date Activated Date Inactivated Comments 12/29/2017 7:54 AM 12/31/2017 10:34 PM Question Answer Comments Does patient have capacity to make decision: Yes Care Teams Pile Driver Relationship Specialty Start Date End Date Bryan Tyler PA [address] [place] [address] PCP - General Family Medicine 09/09/22
--- OUTSIDE RECORDS SUMMARY | 2025-02-26 18:53 | XMS_ITS | Encounter Summary ---
Author Organization [facility] Address [address] [place] [address] Care Team Providers Care Powder Operator Name Role Phone Unavailable Primary Care Provider Unavailabl e Encounter Details Date Type Department Care Team (Late st Contact Info) Description 01/19/2022 Lab Requisition [facility] Pathology & Laboratory Medicine - [facility] [address] [place] [address] Outr Resulting Lab, Provider Social History Tobacco [...] gonorrhoeae Result Negative Negative 2022 15:10 EDT [facility] Chlamydia trachomatis Result Negative Negative 2022 15:10 EDT [facility] Papanicolaou smear specimen (specimen) CERVIX UTERI STRUCTURE / Unknown 01/18/2022 15:56 EDT 2022 8:33 EDT us Provider Outr Resulting Lab MICROBIOLOGY - GENER AL ORDERABLES Final Result [facility] [address] [place] [address] documented in this encounter Visit Diagnoses Not on filedocumented in this encounter
--- OUTSIDE RECORDS SUMMARY | 2025-02-26 18:53 | XMS_ITS | Encounter Summary ---
Author Organization [facility] Address [address] [place] [address] Care Team Providers Care Powerhouse Laborer Name Role Phone Unavailable Primary Care Provider Unavailabl e Encounter Details Date Type Department Care Team (Late st Contact Info) Description 01/19/2022 Lab Requisition [facility] Pathology & Laboratory Medicine - [facility] [address] [place] [address] Becky Cotton MD [address] [place] [address] Encounter for screening for malignant [...] System with Manual Evaluation 01/25/2022 9:15 EDT [facility] Specimen Adequacy Satisfactory for Evaluation - transformation zone component present 01/25/2022 9:15 EDT [facility] General Categorization Negative for intraepithelial lesion or malignancy 01/25/2022 9:15 EDT [facility] Descriptive Diagnosis Shift in alec present suggestive of bacterial vaginosis. 01/25/2022 9:15 EDT [facility] Attestation . 01/25/2022 9:15 EDT [facility] at 0915 EDT Clinical History See below 01/26/20 9:15 EDT [facility] Performing Lab [facility] 01/25/2022 9:15 EDT [facility] Scanned Images 01/25/2022 9:15 EDT [facility] Papanicolaou smear specimen (specimen) CERVIX UTERI STRUCTURE / Unknown 01/18/2022 15:56 EDT 2022 14:21 EDT us Becky Cotton MD PATHOLOGY ORDERABLES Final Res ult [facility] [address] [place] [address] documented in this encounter Visit Diagnoses Diagnosis Encounter for screening for malignant neoplasm of cervix Screening for malignant neoplasm of the cervix documented in this encounter
== END 2025-02-26 16:39 | disposition home or self-care (01) ==
LOC: HO.HGI 15:59
PROVIDERS: Visit Provider Nurse Practitioner Family
DX: K21.9 Gastro-esophageal reflux disease without esophagitis (principal)
CPT/HCPCS: 99203

== ENCOUNTER 2025-02-27 08:18 | Outpatient (AMB) | payer OTHER, SELFPAY ==
--- OUTSIDE RECORDS SUMMARY | 2025-02-27 08:37 | XMS_ITS | Clinical Summary ---
Author Organization [facility] Address [address] [facility] [place] [address] Care Team Providers Care Clinical Coordinator Name Role Phone Bryan Tyler Primary Care Provider +1- [phone] Allergies Active Allergy Reactions Criticality Noted Date [...] walking through the store Negative [place] [facility] [place] [facility] [place] had transient saturation of 82% with good Pleth according to her Assessment & Plan (11/06/2020 10:34 AM EDT): Episodic severe dyspnea Had to sit down walking through the store Negative CTA [place] [facility] [place] [facility] had transient saturation of 82% with [...] 17 Status post pleurodesis on the left [facility] Had a recurrent pneumothorax on the left following this that was controlled by pleurodesis No cysts on chest CT concerning for CARTAGENA Assessment & Plan (11/06/2020 10:33 AM EDT): 3 episodes beginning at age 17 Status post pleurodesis on the left [facility] Had a recurrent pneumothorax on the left [...] Procedure Name Priority Date/Time Associated Diagnosis Comments SALES SUPPORT SPECIALIST CYTOLOGY FINAL REPORT Routine 01/30/2019 12:30 PM EDT from Last 3 Months or Most Recently Relevant to Health Maintenance Results * Inserter Promotional Item Cytology Final Report (01/30/2019 12:30 PM EDT) Inserter Promotional Item Cytology Final Report [id number] Location: [facility] The signing pathologist has (i) examined the relevant preparation(s) for the specimen(s) and (ii) rendered or confirmed the diagnosis(es). . Inserter Promotional Item Final DIAGNOSIS Normal Negative for intraepithelial lesion or malignancy (NILM). For consensus guidelines for the management of cervical cancer screening test results, please see: http://www.asccp. org . Electronically signed by: Delia LUNA(ASCP)Wendy Verified: 02/07/2019 Die Maintenance Performed at: -[facility] Dept. of Pathology, [place], [place] HPV RESULTS Not applicable (HPV testing either not indicated or not requested by clinician). STATEMENT OF ADEQUACY Specimen submitted is satisfactory. Endocervical component present. CLINICAL INFORMATION HPV Option: Reflex HPV CT/NG Option: (not provided) Preparation: Liquid Based Pap Specimen Source: Cervical/LBP LMP: (not provided) Hysterectomy?: No ?: No ?: No I.U.D.?: Yes Pelvic Radiation: No Hist Abnl Pap/Biopsy?: No Prior SALES SUPPORT SPECIALIST Therapy?: No Hist of HPV Vaccine?: Yes Clinical Data, Significant Therapy and Clinical Impression : _ Referring Identifier: [id number] This Pap Test has been evaluated with the assistance of the [employer] Pap Test Imaging System. Note: The Pap test is a screening test for cervical cancer with an inherent false-negative rate dependent upon several variables. For further information please contact the [facility] Laboratory. Reference: Brie SALAZAR. Feed House Supervisor of Pap Smear Results. In: Meghan BS, Elieser GIRARD, ed. The Pap Smear. [place]: Tab, 2002: 71-77. Comment Section Specimen collected at [facility] 01/30/2019 12:3 0 PM EDT us Tram Whitaker MD PATHOLOGY/CYTOLOGY ORDERABLES Fi nal Result [facility] [place] [address] from Last 3 Months or Most Recently Relevant to Health Maintenance Insurance [employer] Advance Directives * Full Code (Latest Code Status on File) Date Activated Date Inactivated Comments 05/10/2019 9:57 PM 05/11/2019 7:30 PM Question Answer Comments Does patient have capacity to make decision: Yes * Full Code Date Activated Date Inactivated Comments 12/29/2017 7:54 AM 12/31/2017 10:34 PM Question Answer Comments Does patient have capacity to make decision: Yes Care Teams Clinical Coordinator Relationship Specialty Start Date End Date Bryan Tyler PA [address] [place] [address] PCP - General Family Medicine 09/09/22
--- OUTSIDE RECORDS SUMMARY | 2025-02-27 08:37 | XMS_ITS | Clinical Summary ---
Author Organization [facility] Address [address] [place] [address] Care Team Providers Care Farm Equipment Service Technician Name Role Phone Unavailable Primary Care [...]
--- OUTSIDE RECORDS SUMMARY | 2025-02-27 08:37 | XMS_ITS | Encounter Summary ---
Author Organization [facility] Address [address] [place] [address] Care Team Providers Care Gaming Worker Name Role Phone Unavailable Primary Care Provider Unavailabl e Encounter Details Date Type Department Care Team (Late st Contact Info) Description 01/19/2022 Lab Requisition [facility] Pathology & Laboratory Medicine - [facility] [address] [place] [address] Outr Resulting Lab, Provider Social History Tobacco [...] gonorrhoeae Result Negative Negative 2022 15:10 EDT [facility] Chlamydia trachomatis Result Negative Negative 2022 15:10 EDT [facility] Papanicolaou smear specimen (specimen) CERVIX UTERI STRUCTURE / Unknown 01/18/2022 15:56 EDT 2022 8:33 EDT us Provider Outr Resulting Lab MICROBIOLOGY - GENER AL ORDERABLES Final Result [facility] [address] [place] [address] documented in this encounter Visit Diagnoses Not on filedocumented in this encounter
--- OUTSIDE RECORDS SUMMARY | 2025-02-27 08:37 | XMS_ITS | Encounter Summary ---
Author Organization [facility] Address [address] [place] [address] Care Team Providers Care Allergy And Immunology Chief Name Role Phone Unavailable Primary Care Provider Unavailabl e Encounter Details Date Type Department Care Team (Late st Contact Info) Description 01/19/2022 Lab Requisition [facility] Pathology & Laboratory Medicine - [facility] [address] [place] [address] Becky Cotton MD [address] [place] [address] Encounter for screening for malignant [...] System with Manual Evaluation 01/25/2022 9:15 EDT [facility] Specimen Adequacy Satisfactory for Evaluation - transformation zone component present 01/25/2022 9:15 EDT [facility] General Categorization Negative for intraepithelial lesion or malignancy 01/25/2022 9:15 EDT [facility] Descriptive Diagnosis Shift in alec present suggestive of bacterial vaginosis. 01/25/2022 9:15 EDT [facility] Attestation . 01/25/2022 9:15 EDT [facility] at 0915 EDT Clinical History See below 01/26/20 9:15 EDT [facility] Performing Lab [facility] 01/25/2022 9:15 EDT [facility] Scanned Images 01/25/2022 9:15 EDT [facility] Papanicolaou smear specimen (specimen) CERVIX UTERI STRUCTURE / Unknown 01/18/2022 15:56 EDT 2022 14:21 EDT us Becky Cotton MD PATHOLOGY ORDERABLES Final Res ult [facility] [address] [place] [address] documented in this encounter Visit Diagnoses Diagnosis Encounter for screening for malignant neoplasm of cervix Screening for malignant neoplasm of the cervix documented in this encounter
--- OUTSIDE RECORDS SUMMARY | 2025-02-27 08:37 | XMS_ITS | Encounter Summary ---
Author Organization [facility] Address [address] [place] [address] Care Team Providers Care Assurance Manager Name Role Phone Unavailable Primary Care Provider Unavailabl e Encounter Details Date Type Department Care Team (Late st Contact Info) Description 11/23/2019 Lab Requisition [facility] Pathology & Laboratory Medicine - [facility] [address] [place] [address] Outr Resulting Lab, Provider Social History Tobacco [...] MICROBIOLOGY - GENER AL ORDERABLES Final Result [facility] [address] [place] [address] * COVID-19 TESTING (11/22/2019 12:00 EDT) COVID-19 rt-PCR Result Negative Negative 11/23/2019 11:53 EDT [facility] Comment: This test has [...] history, and epidemiological information. Performed on the [employer] instrument Performing Lab [place] [facility] 11/23/2019 11:53 EDT [facility] Swab 11/22/2019 12:0 0 EDT 11/23/2019 8:58 EDT us Provider Outr Resulting Lab MICROBIOLOGY - GENER AL ORDERABLES Final Result [facility] [address] [place] [address] documented in this encounter Visit Diagnoses Not on filedocumented in this encounter
--- NOTE | 2025-02-27 08:40 | AM.OFFVISNUR ---
Intake Visit Reasons: h pylori Intake Note: Patient presents for collection of?H Pylori?breath test. Patient has been fasting for 1 hour (nothing to eat, drink, no chewing gum or smoking) has not taken any antacid medication for at least 2 weeks and has no allergies to artificial sweeteners.?? Allergies adhesive tape Allergy (Mild, Verified 02/26/25 16:08) Rash Assessment & Plan Assessment & Plan (1) GERD (gastroesophageal reflux disease): Code(s): K21.9 - Gastro-esophageal reflux disease without esophagitis Category: Medical Qualifiers: Esophagitis presence: esophagitis presence not specified Qualified Code(s): K21.9 - Gastro-esophageal reflux disease without esophagitis (2) Abdominal pain: Code(s): R10.9 - Unspecified abdominal pain Category: Medical Plan Patient presents for collection of?H Pylori?breath test. Patient has been fasting for 1 hour (nothing to eat, drink, no chewing gum or smoking) has not taken any antacid medication for at least 2 weeks and has no allergies to artificial sweeteners.???This test checks for an overgrowth of bacteria in your stomach. We all have bacteria but some may have more than others. It is treatable. if the test comes back negative there is nothing else to do. If the test result is positive we will treat you with 2 antibiotics and a medication to decrease the acid in your stomach (PPI) for 2 weeks. Two weeks after you have completed the treatment we will retest you to make sure the overgrowth has resolved. Coding Level of Care Code Est Pt Level 1 (71460) Diagnoses Gastroesophageal reflux disease, unspecified whether esophagitis present K21.9 Esophagitis presence: esophagitis presence not specified Abdominal pain R10.9
== END 2025-02-27 08:41 | disposition home or self-care (01) ==
LOC: HO.HGI 08:19
PROVIDERS: Visit Provider Nurse Practitioner Family
DX: K21.9 Gastro-esophageal reflux disease without esophagitis (principal); R10.9 Unspecified abdominal pain
CPT/HCPCS: 99499

== ENCOUNTER 2025-02-27 15:53 | Outpatient (REF) | payer OTHER, SELFPAY | END 2025-02-27 15:54 | disposition home or self-care (01) | LOC: HO.LNP 15:53 | PROVIDERS: Visit Provider Nurse Practitioner Family | DX: K21.9 Gastro-esophageal reflux disease without esophagitis (principal) | CPT/HCPCS: 83013 ==